=== PATIENT | male | born 1985 | race Caucasian/White ===

== ENCOUNTER 2020-06-22 08:32 | Emergency (ER) | payer OTHER, SELFPAY ==
--- NOTE | 2020-06-22 08:46 | ECG_ITS ---
Test Reason : SOB Blood Pressure : / mmHG Vent. Rate : 103 BPM Atrial Rate : 103 BPM P-R Int : 130 ms QRS Dur : 082 ms QT Int : 364 ms P-R-T Axes : 026 033 029 degrees QTc Int : 476 ms Sinus tachycardia Otherwise normal ECG No previous ECGs available Referred By: Maggie Vizcarra Electronically Signed By:HUI CRAIN MD
--- NOTE | 2020-06-22 08:50 | ED_ITS ---
HPI - Medical Clearance General Chief complaint: ETOH/Substance Use Stated complaint: withdrawal alcohol Time Seen by Provider: 06/22/20 08:45 Source: patient Mode of arrival: ambulatory Limitations: no limitations History of Present Illness MD complaint: medical clearance requested (for ETOH has bed at facility here for labs, meds, rapid COVID) Onset (ago): day(s) (drinking heavily x 1 year ) Reason for Medical Clearance: other (ETOH withdrawal) Place: home Alleged Intoxication: No Compliant with Home Medications: Yes Traumatic Symptoms: denies traumatic injury Associated Symptoms: diaphoresis and nausea/vomiting Treatments Prior to Arrival: none Related Information Allergies Allergy/AdvReac Type Severity Reaction Status Date / Time No Known Allergies Allergy Verified 06/22/20 08:45 Review of Systems Review of Systems: Constitutional : No Fever, No Chills, sweats ENT/Mouth : No Ear Pain, No Nasal Congestion, No sore throat Eyes: No Eye Pain, No Swelling, No Redness Cardiovascular : No Chest Pain, No SOB Respiratory : No Cough, No Sputum, No Dyspnea Gastrointestinal : pos Nausea, pos Vomiting, No Diarrhea, No Hematochezia, No Melena Genitourinary : No Dysuria, No Urinary Frequency, No Hematuria Musculoskeletal : No Myalgias Skin : No Skin Lesions, No rash Neuro : No Weakness, No Numbness, No Paresthesias, No Dizziness, No Headache Psych : positive Anxiety, no Depression,no SI/HI Heme/Lymph: No Lymphadenopathy Endocrine : No Polyuria, No Polydipsia All other systems reviewed and are negative [facility] Past Medical History Medical History Depression Diverticulitis GERD (gastroesophageal reflux disease) Social History Social History (Updated 06/22/20 @ 08:52 by Maggie Vizcarra DO) Alcohol intake: current Alcohol intake frequency: 3 or more drinks per day Alcohol type: hard liquor Smoking Status: Current every day smoker Tobacco Type: E-Cigarette Smoked in Last 30 Days: Yes Use of substances other than those prescribed or required for medical reasons: No Advance Directives: No Advance Directives Information Provided: No Physical Exam Vital Signs: Vital Signs: Last Vital Signs Temp 98.0 F 06/22/20 08:56 Pulse 74 06/22/20 11:45 Resp 18 06/22/20 08:56 BP 134/87 06/22/20 11:45 Pulse Ox 99 06/22/20 08:56 Body Mass Index 46.2 Appearance: Alert. Oriented X3. Anxious, mild acute distress, diaphoretic Eyes: Pupils equal, round and reactive to light. ENT: Pharynx normal. Neck: Normal inspection. Neck supple. CVS: Normal heart rate and rhythm. Pulses normal. Respiratory: No respiratory distress. Breath sounds normal. Abdomen: Soft and nontender. Skin: Skin warm and diaphoretic. Normal skin color. Normal skin turgor. Extremities: No lower extremity edema. No calf ttp Neuro: Oriented X 3. No motor deficit. No sensory deficit. Fine tremor bilateral UE Course Course Course Narrative: feels much better, stable for DC MDM - Medical Clearance MDM Narrative Medical decision making narrative: 34 yo male with GERD and alcoholism last drink 18 hours ago - has bed at [facility] needs medical clearance including rapid COVID at this time will need labs, IV ativan 2mg, hydration, EKG, covid test, intake phone call per [facility] is 10am. Lab Data Result diagrams: 06/22/20 09:10 06/22/20 09:09 Labs: Lab Results 06/22/20 06/22/20 06/22/20 Range/Units 09:09 09:09 09:09 WBC (4.8-10.8) X10*3/uL RBC (4.60-5.80) X10*6/uL Hgb (14.0-18.0) g/dl Hct (42-52) % MCV (80-98) fL MCH (27.0-33.0) pg MCHC (31.0-36.0) g/dl RDW (11.0-16.0) % Plt Count (160-400) X10*3/uL MPV (9.4-12.4) fL Immature Gran % (Auto) (0.0-0.4) % Neut % (Auto) (45-73) % Lymph % (Auto) (20-40) % [place] % (Auto) (2-11) % Eos % (Auto) (0-4) % Baso % (Auto) (0-2) % Lymph # (Auto) (1.2-4.9) X10*3/uL [place] # (Auto) (0.1-1.2) X10*3/uL Eos # (Auto) (0.0-0.4) X10*3/uL Baso # (Auto) (0.0-0.2) X10*3/uL Abs Immat Gran (auto) (0.00-0.03) X10*3/uL Absolute Neuts (auto) (2.0-8.3) X10*3/uL Absolute Nucleated RBC (0.0-0.012) X10*3/uL Nucleated RBC % (auto) (0.0-0.2) /100WBC Hold Blue Top SEE NOTE Sodium 139 (135-145) mmol/L Potassium 4.1 (3.3-5.1) mmol/l Chloride 103 (96-108) mmol/L Carbon Dioxide 27 (22-29) mmol/L Anion Gap 13 (12-20) BUN 12 (9-16) mg/dL Creatinine 0.86 (0.5-1.4) mg/dL Estim Creat Clear Calc 199.9 Estimated GFR > 60 Random Glucose 103 (60-115) mg/dL Calcium 8.0 L (8.4-10.2) mg/dL Magnesium 1.6 (1.6-2.6) mg/dL Total Bilirubin 0.4 (0.0-1.0) mg/dL Direct Bilirubin 0.2 (0.0-0.5) mg/dL AST 44 H (5-37) U/L ALT 56 H (0-40) U/L Alkaline Phosphatase 104 (39-117) U/L Total Protein 7.2 (6.5-8.0) g/dL Albumin 4.1 (3.5-5.0) g/dL Lipase (8-78) U/L Ethyl Alcohol < 10 mg/dL Coronavirus (PCR) (Negative) 06/22/20 06/22/20 06/22/20 Range/Units 09:09 09:10 10:36 WBC 8.7 (4.8-10.8) X10*3/uL RBC 4.61 (4.60-5.80) X10*6/uL Hgb 12.5 L (14.0-18.0) g/dl Hct 39.8 L (42-52) % MCV 86.3 (80-98) fL MCH 27.1 (27.0-33.0) pg MCHC 31.4 (31.0-36.0) g/dl RDW 14.9 (11.0-16.0) % Plt Count 209 (160-400) X10*3/uL MPV 8.6 L (9.4-12.4) fL Immature Gran % (Auto) 0.7 H (0.0-0.4) % Neut % (Auto) 72.2 (45-73) % Lymph % (Auto) 18.9 L (20-40) % [place] % (Auto) 6.5 (2-11) % Eos % (Auto) 1.1 (0-4) % Baso % (Auto) 0.6 (0-2) % Lymph # (Auto) 1.7 (1.2-4.9) X10*3/uL [place] # (Auto) 0.6 (0.1-1.2) X10*3/uL Eos # (Auto) 0.1 (0.0-0.4) X10*3/uL Baso # (Auto) 0.1 (0.0-0.2) X10*3/uL Abs Immat Gran (auto) 0.06 H (0.00-0.03) X10*3/uL Absolute Neuts (auto) 6.3 (2.0-8.3) X10*3/uL Absolute Nucleated RBC 0.000 (0.0-0.012) X10*3/uL Nucleated RBC % (auto) 0.0 (0.0-0.2) /100WBC Hold Blue Top Sodium (135-145) mmol/L Potassium (3.3-5.1) mmol/l Chloride (96-108) mmol/L Carbon Dioxide (22-29) mmol/L Anion Gap (12-20) BUN (9-16) mg/dL Creatinine (0.5-1.4) mg/dL Estim Creat Clear Calc Estimated GFR Random Glucose (60-115) mg/dL Calcium (8.4-10.2) mg/dL Magnesium (1.6-2.6) mg/dL Total Bilirubin (0.0-1.0) mg/dL Direct Bilirubin (0.0-0.5) mg/dL AST (5-37) U/L ALT (0-40) U/L Alkaline Phosphatase (39-117) U/L Total Protein (6.5-8.0) g/dL Albumin (3.5-5.0) g/dL Lipase 14 (8-78) U/L Ethyl Alcohol mg/dL Coronavirus (PCR) NEGATIVE (Negative) ECG Data Attestation: I personally reviewed and interpreted this ECG as follows: ECG interpretation date: 06/22/20 ECG interpretation time: 08:56 Interpretation: Rate: 103 Rhythm: sinus tachycardia [place]: normal Normal P waves. Normal LYLY. Normal QRS complex. ST T wave : normal qTC: normal prior studies: no acute ischemia The study has been interpreted contemporaneously by me. . Critical Care Time Critical Care Time Critical Care Time: Yes Total Critical Care Time: 60 Attestation: IV ativan x 2, IVF, labs, EKG I attest to this time spent taking care of the patient Discharge Plan Discharge Clinical Impression: Alcohol withdrawal syndrome Qualifiers: Complication of substance-induced condition: uncomplicated Qualified Code(s): F10.230 - Alcohol dependence with withdrawal, uncomplicated Patient Disposition: Home, Self-Care Instructions: Abuse of Alcohol (ED), Medical Clearance for Substance Abuse Treatment (ED) Additional Instructions: return to ED for any worsening symptoms or concerns PLEASE GO TO DETOX Interventions: ED Discharge Assessment Last Done: 06/22/20 13:37 Discharge Date/Time: 06/22/20 13:38
[2020-06-22 08:56] VITALS: BP 156/103; PULSE 74; RESP 18; TEMP 36.7; O2SAT 99; BMI 46.2
[2020-06-22 09:15] LABS: MANUAL DIFF FLAG NO
[2020-06-22 09:16] LABS: Basophils Absolute Auto 0.1 X10*3/uL (0.0-0.2); Basophils Percent Auto 0.6 % (0-2); Eosinophils Absolute Auto 0.1 X10*3/uL (0.0-0.4); Eosinophils Percent Auto 1.1 % (0-4); Hematocrit 39.8 % (42-52); Hemoglobin 12.5 g/dl (14.0-18.0); Imm Gran Abs Auto 0.06 X10*3/uL (0.00-0.03); Imm Gran Pct Auto 0.7 % (0.0-0.4); Lymphocytes Absolute Auto 1.7 X10*3/uL (1.2-4.9); Lymphocytes Percent Auto 18.9 % (20-40); Mean Corpuscular HGB Conc 31.4 g/dl (31.0-36.0); Mean Corpuscular Hemoglobin 27.1 pg (27.0-33.0); Mean Corpuscular Volume 86.3 fL (80-98); Mean Platelet Volume 8.6 fL (9.4-12.4); Monocytes Absolute Auto 0.6 X10*3/uL (0.1-1.2); Monocytes Percent Auto 6.5 % (2-11); Neutrophils Absolute Auto 6.3 X10*3/uL (2.0-8.3); Neutrophils Percent Auto 72.2 % (45-73); Platelet Count 209 X10*3/uL (160-400); Red Blood Count 4.61 X10*6/uL (4.60-5.80); Red Cell Distribution Width 14.9 % (11.0-16.0); White Blood Count 8.7 X10*3/uL (4.8-10.8)
[2020-06-22] MEDS: Magnesium Sulfate/H2O 2 GM/50 ML PIGGYBACK IV (09:16)
[2020-06-22] MEDS: 0.9 % Sodium Chloride 1,000 ML 999 ML IVCONT (09:16)
--- NOTE | 2020-06-22 09:16 | MHC.CARE ---
Addiction Consult Service note: Patient is a 34 year old Haitian speaking male who presented to [facility] for medical clearance so that patient can go to detox for alcohol use. 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 Patient reports [facility] beds available and that he will call them at 10:00 for an intake. Encouraged patient to consider how he plans to support his recovery after treatment. Patient acknowledged. This junior copywriter available as needed to assist with referral process.
[2020-06-22] MEDS: LORazepam 2 MG/ML VIAL IVPUSH ×2 (09:18→11:40)
[2020-06-22] MEDS: ondansetron HCL 4 MG/2 ML VIAL IVPUSH (09:18)
[2020-06-22 09:39] LABS: Alanine Aminotransferase 56 U/L (0-40); Albumin Level 4.1 g/dL (3.5-5.0); Alkaline Phosphatase 104 U/L (39-117); Anion Gap 13 (12-20); Aspartate Amino Transferase 44 U/L (5-37); Bilirubin Direct 0.2 mg/dL (0.0-0.5); Bilirubin Total 0.4 mg/dL (0.0-1.0); Blood Urea Nitrogen 12 mg/dL (9-16); Carbon Dioxide 27 mmol/L (22-29); Chloride 103 mmol/L (96-108); Creatinine Clr Calc Pharmacy 199.9; Estimated Glomerular Filt Rate > 60; Glucose Random 103 mg/dL (60-115); Magnesium 1.6 mg/dL (1.6-2.6); Potassium 4.1 mmol/l (3.3-5.1); Sodium 139 mmol/L (135-145); Total Protein 7.2 g/dL (6.5-8.0)
[2020-06-22 09:40] LABS: Lipase 14 U/L (8-78)
[2020-06-22 09:50] LABS: Ethanol < 10 mg/dL
[2020-06-22 09:59] VITALS: PULSE 82
--- NOTE | 2020-06-22 10:17 | PC.NURSE ---
pt continues to feel nauseous, provider aware. medicated per emar.
[2020-06-22] MEDS: Metoclopramide HCl 10 MG/2 ML VIAL IVPUSH (10:20)
[2020-06-22] MEDS: diphenhydrAMINE HCL 50 MG/ML VIAL 25 MG IVPUSH (10:20)
[2020-06-22] MEDS: chlordiazePOXIDE HCl 25 MG CAPSULE PO (11:40)
--- NOTE | 2020-06-22 11:44 | PC.NURSE ---
pt medicated further per emar, sts no longer feeling nauseous. tolerating po w/o issue. wctm.
[2020-06-22 11:45] VITALS: BP 134/87; PULSE 74
[2020-06-22 12:03] LABS: SARS COV2 PCR INHOUSE NEGATIVE (Negative)
== END 2020-06-22 13:38 | disposition home or self-care (01) ==
PROVIDERS: Emergency Provider Emergency Medicine; PCP Internal Medicine
DX: F10.230 Alcohol dependence with withdrawal, uncomplicated (principal); F17.200 Nicotine dependence, unspecified, uncomplicated; Z71.6 Tobacco abuse counseling; Z79.899 Other long term (current) drug therapy; Z20.828 Contact with and (suspected) exposure to other viral communicable diseases
CPT/HCPCS: 36415; 80048; 80076; 80320; 83690; 83735; 85025; 93005; 96365; 96375; 96376; 99285; 99291; J1200; J2060; J2405; J2765; J3475; U0003

== ENCOUNTER 2021-07-23 15:07 | Inpatient (IN) | payer OTHER, SELFPAY ==
[2021-07-23] VITALS (9 sets, daily range): BP systolic 115–129; BP diastolic 47–70; PULSE 106–126; RESP 18–30; TEMP 37.3–37.5; O2SAT 84–100; BMI 48.7
--- NOTE | ~2021-07-23 | CT_ITS ---
EXAMINATION: CT ANGIOGRAM OF THE CHEST WITH AND WITHOUT CONTRAST (CT PULMONARY ANGIOGRAM FOR PE) CLINICAL INFORMATION: Reason for Exam fall, right facial droop, chest pain, hypoxia rule out PE COMPARISON: None TECHNIQUE: Prior to contrast administration, noncontrast localization images were obtained. Subsequently, multidetector volumetric imaging was performed from the thoracic inlet to below the diaphragms following the administration of 100 mL Omnipaque 350 intravenous contrast. No contrast reaction reported Sagittal, coronal, and MIP oblique sagittal reformatted images were obtained on the CT workstation, uploaded to PACS, and reviewed. This CT examination was performed using dose optimization techniques as appropriate, variously including the following: *Automated exposure control *Adjustment of mA and/or kV according to patient size (this includes techniques or standardized protocols for targeted exams where dose is matched to indication/reason for exam; i.e. extremities or head) *Use of iterative reconstruction technique Total exam dose-length product 780 mGy-cm FINDINGS: QUALITY OF STUDY/CONTRAST BOLUS: The bolus is not optimal. Significant artifact is present from low-dose technique and the patient's large size. PULMONARY ARTERIES: No central or large segmental pulmonary emboli. THORACIC AORTA: No aneurysm or dissection. LUNG: Diffuse patchy densities are seen throughout the lungs involving all lobes, upper lobes greater than lower lobes. PLEURA: No pleural effusion or pneumothorax. MEDIASTINUM: Normal heart size. No pericardial effusion. No hilar or mediastinal lymphadenopathy. No evidence of septal bowing or right heart strain. CHEST WALL/AXILLA: No axillary or internal mammary lymphadenopathy. OSSEOUS STRUCTURES: No acute or suspicious osseous abnormality. UPPER ABDOMEN: The liver is enlarged with decreased attenuation suggesting hepatic steatosis. There is splenomegaly with the spleen measuring at least 15.3 cm in greatest dimension. No reflux of contrast into the hepatic veins to suggest elevated right heart pressures. CT/CT angio chest PE protocol IMPRESSION: 1. No pulmonary emboli are detected. 2. Diffuse extensive multifocal infiltrates as described above. 3. Enlarged fatty liver with splenomegaly VTE: negative
--- NOTE | ~2021-07-23 | CT_ITS ---
CT head/brain wo con CLINICAL INFORMATION: Fall COMPARISON: No prior CT scan available for comparison. TECHNIQUE: Department standard protocol. This CT examination was performed using dose optimization techniques as appropriate, variously including the following: *Automated exposure control *Adjustment of mA and/or kV according to patient size (this includes techniques or standardized protocols for targeted exams where dose is matched to indication/reason for exam; i.e. extremities or head) *Use of iterative reconstruction technique DLP: 880 mGy-cm FINDINGS: CEREBRAL HEMISPHERES: There is no evidence of intra-axial or extra-axial mass, hemorrhage or acute infarct. BRAIN PARENCHYMA: Normal vera-white matter differentiation. SUBDURAL SPACE: No bleed. BASAL GANGLIA AND PINEAL GLAND: Unremarkable VENTRICLES: Symmetric and normal in size. CEREBELLUM AND BRAINSTEM: No space-occupying mass, hemorrhage or acute infarct. CEREBELLOPONTINE ANGLES: No lesion found. ORBITS: No intraorbital mass. VESSELS: Unremarkable SKULL BASE: Unremarkable INCLUDED SINUSES AT SKULL BASE: Clear SKULL AND SKIN: No fracture or bone lesion found. CT/CT head for stroke IMPRESSION: Normal noncontrast head CT. No intracranial bleed. Normal CT scan does not rule out the possibility of hyperacute infarct in the first 12 hours. If patient symptoms persist may consider correlation with MRI, which is more sensitive for early acute infarct. This critical result was discussed with Kev Garcia MD by telephone at 07/23/2021 5: 20 PM and it was ascertained that the content and urgency of the report was understood at the time of direct communication.
--- NOTE | ~2021-07-23 | US_ITS ---
EXAMINATION: US VENOUS ULTRASOUND WITH DOPPLER LOWER EXTREMITY, LEFT CLINICAL INFORMATION: Left lower extremity swelling COMPARISON: None TECHNIQUE: Ultrasound of the deep veins is performed from the hip to the calf with compression sonography and color and pulse Doppler assessment. Spectral analysis with color-flow imaging is performed. FINDINGS: There is normal venous compression and respiratory variation and augmented flow. The visualized common femoral vein, superficial femoral vein, profunda femoral vein, popliteal vein, and the trifurcation region shows no evidence of deep venous thrombosis. There is no significant popliteal fossa cyst. If the patient's symptoms persist, followup ultrasound in 5 days 7 days might be of value to exclude proximal propagation from a non-visualized calf vein. US/US venous duplex LE LT IMPRESSION: No DVT demonstrated in the left lower extremity.
--- NOTE | 2021-07-23 16:12 | ECG_ITS ---
Test Reason : DYSPNEA Blood Pressure : / mmHG Vent. Rate : 108 BPM Atrial Rate : 108 BPM P-R Int : 140 ms QRS Dur : 084 ms QT Int : 346 ms P-R-T Axes : 018 035 035 degrees QTc Int : 463 ms Sinus tachycardia Otherwise normal ECG When compared with ECG of 22-JUN-2020 08:53, No significant change was found Referred By: Kev Garcia Electronically Signed By:Clark Lizarraga
--- NOTE | 2021-07-23 16:29 | ED_ITS ---
HPI - SOB/Dyspnea General Chief Complaint: Dyspnea Stated Complaint: SOB Time Seen by Provider: 07/23/21 15:56 Source: patient Mode of arrival: EMS Limitations: no limitations History of Present Illness HPI Narrative: 35-year-old male who presents emergency department for evaluation of right facial droop, right facial numbness, fall, hypoxia, chest pain. 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 this morning. He states that at around 2:30 p.m., his heard a being and suspected that the patient fell out of bed. When his got to the room, the patient was sitting on the side of the bed any appeared to be confused. The patient states that was having numbness on the right side of his face and he was having difficulty making a O with his lips. He states that he was having a burning sensation in his chest. he states that the burning sensation is similar to his GERD. The chest pain is constant, the pain is 5/10 at its worst. He also states this morning he has developed a cough which is productive of thick phlegm. He feels short of breath. The patient states he is also having trouble walking but he denies weakness in his extremities. The patient states that he was well throughout her shift last night and felt well this morning when he went to bed at 10:00 a.m.. The forms analysis manager note is not available to me however patient states that the paramedics were concerned that he was hypoxic and placed on 100%. at the time my evaluation, patient was able to give a complete history however he had significant nausea and vomited several times in front of me, the emesis was yellow and contain food, there is no blood in the emesis. The emesis measured approximately 700 cc in the emesis bag. Related Data Allergies Allergy/AdvReac Type Severity Reaction Status Date / Time No Known Allergies Allergy Verified 06/22/20 08:45 Review of Systems Review of Systems: Yes all other systems are reviewed and are negative [facility] Past Medical History [facility] Narrative: Past medical history: GERD, depression, alcohol use disorder - the patient states he has been sober for 1 year, diverticulitis. Past surgical history: None. 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 He smokes 5 cigarettes per day. He states that he is not drink alcohol in over 1 year. He denies drug use. Medical History Depression Diverticulitis GERD (gastroesophageal reflux disease) Social History Social History Alcohol intake: current Alcohol intake frequency: 3 or more drinks per day Alcohol type: hard liquor Advance Directives: No Advance Directives Information Provided: Yes Physical Exam Vital Signs: Vital Signs: Last Vital Signs Temp 99.1 F 07/23/21 15:38 Pulse 126 H 07/23/21 19:23 Resp 18 07/23/21 19:23 BP 129/66 07/23/21 19:23 Pulse Ox 95 07/23/21 19:23 BMI result Body Mass Index 48.7 Const: Other: Awake, alert, male patient, actively vomiting when I initially evaluated him. He is pleasant, cooperative, able answer all questions appropriately, does not appear to be in distress, O2 saturation on room air was 83%, on 5 L with 88% on non-rebreather at 15 L was 98%. Patient is overweight with a BMI of 48.8 HENMT: Head: Yes normal to inspection, Yes normocephalic and Yes atraumatic Ears: external ears normal General nose exam: Normal external nose present Face and sinus: No sinuses nontender and No face symmetric ( Slight right facial droop) Mouth: Normal oral and palatal mucosa present Throat: Yes posterior oropharynx normal Eyes: General: appearance normal, both eyes and all related structures Neck: Neck: Yes normal visual inspection, Yes no lymphadenopathy, Yes trachea midline and Yes supple Chest: Chest palpation & inspection: normal inspection of the chest and normal palpation of entire chest wall Resp: Effort & Inspection: normal respiratory effort and able to speak in complete sentences Auscultation: clear to auscultation bilaterally Cardio: Rate: regular rate Rhythm: regular rhythm Heart sounds: S1 normal heart sound present, S2 normal heart sound present and no murmurs GI: Inspection: Yes normal to inspection Palpation (GI): Soft to palpation, Tenderness to palpation present (GI) in the epigastrum ( moderate) and no guarding Auscultation: normal bowel sounds : General: Yes no CVA tenderness Back/Spine/Pelvis: Back: no CVA tenderness Skin: General skin exam: no rashes or lesions noted Neuro: Other: cranial nerves 2-12: The patient does have a very slight right facial droop and is not able to raise the corner of his right lips, he is not able to hold air in his cheeks secondary to not being able to hold his lips together. The patient has decreased light touch to the right side of his face compared to the left side otherwise his cranial nerves are intact. Cognition (Neuro): normal cognition Motor exam (neuro): 5/5 motor strength present throughout Extrem: General: Yes normal to inspection Psych: Appearance: grossly normal Speech and movement: Normal speech and movement present Affect: normal affect Attitude: cooperative Thought process: Normal thought process present NIH Stroke Scale Internal: Initial- Upon Arrival Level of Consciousness: Alert Level of Consciousness Questions: Answers both questions correctly Level of Consciousness Commands: Performs both tasks correctly Best Gaze: Normal Visual: No visual loss Facial Palsy: Minor paralyis Motor Arm (Right): No drift Motor Arm (Left): No drift Motor Leg (Right): No drift Motor Leg (Left): No drift Limb Ataxia: Absent Sensory: Normal Best Language: No aphasia Dysarthia: Normal Extinction and Inattention: No abnormality Score: 1 Course Course Course Narrative: 35-year-old male who presents emergency department for evaluation of a fall this afternoon at 2:30 p.m. with a last well-known time at 10:00 a.m.. The patient also complained difficulty forming an O with his left, right-sided facial numbness, nausea, vomiting, chest pain. Patient was found to be hypoxic by the paramedics and placed on a 100% non-rebreather mask at 15 liters/minute. Vital signs revealed tachycardia with a pulse of 106, tachypnea with a respiratory rate of 33, O2 saturation on room air was 83% and was 100% on non-rebreather mask. Neurologic exam did reveal slight right sided facial droop with decreased light touch sensation on the right side of his face compared to the left. He did have midepigastric tenderness on his abdominal exam otherwise exam was unremarkable. Differential includes but is not limited to stroke, closed head injury with bleed, pulmonary embolism, myocardial infarction, aortic dissection. Given that his last well-known time was 10:00 a.m. the patient was outside of the thrombolytics therapeutic window by the time I evaluated him also given the diagnostic uncertainty of this patient's presentation especially his fall, we will need more time to evaluate him for possible stroke versus other conditions and which thrombolytics would be contraindicated. Also, his NIH stroke scale was only 1.I ordered a CBC, CMP, troponin, PT/ INR, PTT, D-dimer, 12 EKG, CT pulmonary angiogram rule out PE, CT scan of the head stroke protocol. Patient was treated with normal saline IV x1 L, Zofran 4 mg IV. 1803: Laboratory evaluation: WBC was elevated 21,000, INR was elevated 1.2. BUN is elevated at 20, glucose elevated 161, AST and ALT are elevated 82 and 88, D-dimer was elevated at 1068, high sensitivity troponin I was elevated 163.7, COVID-[address] was [address] The patient's CT scan of the brain revealed no acute process. CT scan pulmonary angiogram PE protocol revealed no PE, but the radiologist did describe diffuse patchy densities seen throughout the lungs involving all lobes, upper lobes greater than lower lobes and incidental enlarged fatty liver with splenomegaly. given this finding, I did order blood cultures x2, lactic acid, patient will be treated with ceftriaxone 1 g IV and azithromycin 500 mg IV. The patient does meet SIRS criteria, he is not hypotensive but does need severe sepsis secondary to his severe hypoxia. Patient's COVID-19 test is negative however I am concerned that he still may have a COVID pneumonia. I will discuss further treatment with the covering heavy mobile equipment repairer. 1901: I did discuss the patient's presentation with the heavy mobile equipment repairer, Dr. Rowe. his differential included pulmonary edema, alveolar hemorrhage, reaction to drug use such as cocaine, COVID-19, atypical pneumonia, viral pneumonia. He recommended that we give the patient Solu-Medrol 30 mg IV and then 30 mg IV q.12, high-flow oxygen and CPAP at night the filter since the patient were CPAP . Patient's lactic acid was only 1.8. ProBNP was only 23 so I do not think that as pulmonary edema. I will discuss admission with the covering hospitalist.. 1955: The patient's repeat troponin did go up by more than 50%. I did discuss this with the pathology laboratory director, Dr. Lizarraga. thecardiologist felt that this represented a type 2 injury (troponin leak) secondary to hypoxia. He recommended against giving the patient heparin at this time and recommended that we treat his hypoxia. I did discuss the patient's presentation with the covering hospitalist, Dr. Cole. He brought up the possibility of an aspiration pneumonia, the patient was vomiting or got here in the emergency department but did not vomited home. I did add Flagyl 500 mg IV to his a ntibiotic regimen. Patient will be admitted to the [facility]. I will check an ABG on the patient. MDM - SOB/Dyspnea Lab Data Result diagrams: 07/23/21 16:42 07/23/21 16:42 Labs: Lab Results 07/23/21 07/23/21 07/23/21 Range/Units 16:42 16:42 16:42 WBC 21.0 H (4.8-10.8) X10*3/uL RBC 4.76 (4.60-5.80) X10*6/uL Hgb 12.1 L (14.0-18.0) g/dl Hct 39.5 L (42.0-52.0) % MCV 83.0 (80.0-98.0) fL MCH 25.4 L (27.0-33.0) pg MCHC 30.6 L (31.0-36.0) g/dl RDW 15.4 (11.0-16.0) % Plt Count 306 (160-400) X10*3/uL MPV 8.6 L (9.4-12.4) fL Immature Gran % (Auto) 1.2 H (0.0-0.4) % Neut % (Auto) 87.1 H (45-73) % Lymph % (Auto) 6.0 L (20-40) % Curry % (Auto) 5.4 (2-11) % Eos % (Auto) 0.1 (0-4) % Baso % (Auto) 0.2 (0-2) % Lymph # (Auto) 1.3 (1.2-4.9) X10*3/uL Curry # (Auto) 1.1 (0.1-1.2) X10*3/uL Eos # (Auto) 0.0 (0.0-0.4) X10*3/uL Baso # (Auto) 0.1 (0.0-0.2) X10*3/uL Abs Immat Gran (auto) 0.26 H (0.00-0.03) X10*3/uL Absolute Neuts (auto) 18.2 H (2.0-8.3) x10*3/uL Absolute Nucleated RBC 0.000 (0.0-0.012) X10*3/uL Nucleated RBC % (auto) 0.0 (0.0-0.2) /100WBC PT 13.5 H (9.9-13.0) SEC INR 1.2 H (0.9-1.1) APTT 29.0 (24.1-38.0) SEC D-Dimer High Sensitivty 1068 NG/ML Sodium 138 (135-145) mmol/L Potassium 4.8 (3.3-5.1) mmol/L Chloride 104 (96-108) mmol/L Carbon Dioxide 24 (22-29) mmol/L Anion Gap 15 (12-20) BUN 20 H (9-16) mg/dL Creatinine 1.24 (0.5-1.4) mg/dL Estim Creat Clear Calc 141.7 Estimated GFR > 60 POC Glucose (60-115) mg/dL Random Glucose 161 H D (60-115) mg/dL Lactic Acid (0.5-2.0) mmol/L Calcium 8.8 D (8.4-10.2) mg/dL Total Bilirubin 0.3 (0.0-1.0) mg/dL AST 82 H (5-37) U/L ALT 88 H (0-40) U/L Alkaline Phosphatase 99 (39-117) U/L Troponin I High Sens (<3.5-35.0) ng/L B-Natriuretic Peptide (<100) pg/mL Total Protein 7.4 (6.5-8.0) g/dL Albumin 4.2 (3.5-5.0) g/dL Lipase 11 (8-78) U/L COVID-19 (DOMINIQUE) (Negative) COVID-19 Clin Com Influenza Type A (PCR) (Negative) Influenza Type B (PCR) (Negative) RSV RNA Qual (PCR) (Negative) SARS-CoV-2 RNA (RT-PCR) (Negative) 07/23/21 07/23/21 07/23/21 Range/Units 16:42 16:43 18:32 WBC (4.8-10.8) X10*3/uL RBC (4.60-5.80) X10*6/uL Hgb (14.0-18.0) g/dl Hct (42.0-52.0) % MCV (80.0-98.0) fL MCH (27.0-33.0) pg MCHC (31.0-36.0) g/dl RDW (11.0-16.0) % Plt Count (160-400) X10*3/uL MPV (9.4-12.4) fL Immature Gran % (Auto) (0.0-0.4) % Neut % (Auto) (45-73) % Lymph % (Auto) (20-40) % Curry % (Auto) (2-11) % Eos % (Auto) (0-4) % Baso % (Auto) (0-2) % Lymph # (Auto) (1.2-4.9) X10*3/uL Curry # (Auto) (0.1-1.2) X10*3/uL Eos # (Auto) (0.0-0.4) X10*3/uL Baso # (Auto) (0.0-0.2) X10*3/uL Abs Immat Gran (auto) (0.00-0.03) X10*3/uL Absolute Neuts (auto) (2.0-8.3) x10*3/uL Absolute Nucleated RBC (0.0-0.012) X10*3/uL Nucleated RBC % (auto) (0.0-0.2) /100WBC PT (9.9-13.0) SEC INR (0.9-1.1) APTT (24.1-38.0) SEC D-Dimer High Sensitivty NG/ML Sodium (135-145) mmol/L Potassium (3.3-5.1) mmol/L Chloride (96-108) mmol/L Carbon Dioxide (22-29) mmol/L Anion Gap (12-20) BUN (9-16) mg/dL Creatinine (0.5-1.4) mg/dL Estim Creat Clear Calc Estimated GFR POC Glucose (60-115) mg/dL Random Glucose (60-115) mg/dL Lactic Acid (0.5-2.0) mmol/L Calcium (8.4-10.2) mg/dL Total Bilirubin (0.0-1.0) mg/dL AST (5-37) U/L ALT (0-40) U/L Alkaline Phosphatase (39-117) U/L Troponin I High Sens 163.7 H* 396.7 H* D (<3.5-35.0) ng/L B-Natriuretic Peptide 23 (<100) pg/mL Total Protein (6.5-8.0) g/dL Albumin (3.5-5.0) g/dL Lipase (8-78) U/L COVID-19 (DOMINIQUE) Negative (Negative) COVID-19 Clin Com See Note Influenza Type A (PCR) (Negative) Influenza Type B (PCR) (Negative) RSV RNA Qual (PCR) (Negative) SARS-CoV-2 RNA (RT-PCR) (Negative) 07/23/21 07/23/21 07/23/21 Range/Units 18:32 18:38 19:47 WBC (4.8-10.8) X10*3/uL RBC (4.60-5.80) X10*6/uL Hgb (14.0-18.0) g/dl Hct (42.0-52.0) % MCV (80.0-98.0) fL MCH (27.0-33.0) pg MCHC (31.0-36.0) g/dl RDW (11.0-16.0) % Plt Count (160-400) X10*3/uL MPV (9.4-12.4) fL Immature Gran % (Auto) (0.0-0.4) % Neut % (Auto) (45-73) % Lymph % (Auto) (20-40) % Curry % (Auto) (2-11) % Eos % (Auto) (0-4) % Baso % (Auto) (0-2) % Lymph # (Auto) (1.2-4.9) X10*3/uL Curry # (Auto) (0.1-1.2) X10*3/uL Eos # (Auto) (0.0-0.4) X10*3/uL Baso # (Auto) (0.0-0.2) X10*3/uL Abs Immat Gran (auto) (0.00-0.03) X10*3/uL Absolute Neuts (auto) (2.0-8.3) x10*3/uL Absolute Nucleated RBC (0.0-0.012) X10*3/uL Nucleated RBC % (auto) (0.0-0.2) /100WBC PT (9.9-13.0) SEC INR (0.9-1.1) APTT (24.1-38.0) SEC D-Dimer High Sensitivty NG/ML Sodium (135-145) mmol/L Potassium (3.3-5.1) mmol/L Chloride (96-108) mmol/L Carbon Dioxide (22-29) mmol/L Anion Gap (12-20) BUN (9-16) mg/dL Creatinine (0.5-1.4) mg/dL Estim Creat Clear Calc Estimated GFR POC Glucose 95 (60-115) mg/dL Random Glucose (60-115) mg/dL Lactic Acid 1.8 (0.5-2.0) mmol/L Calcium (8.4-10.2) mg/dL Total Bilirubin (0.0-1.0) mg/dL AST (5-37) U/L ALT (0-40) U/L Alkaline Phosphatase (39-117) U/L Troponin I High Sens (<3.5-35.0) ng/L B-Natriuretic Peptide (<100) pg/mL Total Protein (6.5-8.0) g/dL Albumin (3.5-5.0) g/dL Lipase (8-78) U/L COVID-19 (DOMINIQUE) (Negative) COVID-19 Clin Com Influenza Type A (PCR) NEGATIVE (Negative) Influenza Type B (PCR) NEGATIVE (Negative) RSV RNA Qual (PCR) NEGATIVE (Negative) SARS-CoV-2 RNA (RT-PCR) NEGATIVE (Negative) Critical Care Time Critical Care Time Critical Care Time: Yes Total Critical Care Time: 80 Attestation: Critical Care: The patient was critically ill with a high probability of imminent or life threatening deterioration. I spent greater than 30 minutes of discontinuous time evaluating the patient,delivering critical care at the bedside, discussing and evaluating pertinent data with consultants. Crit ical care time does not include time spent performing separately billable procedures or teaching. Total time spent performing critical care was 80 minutes.
[2021-07-23 16:48] LABS: MANUAL DIFF FLAG NO
[2021-07-23 16:49] LABS: Basophils Absolute Auto 0.1 X10*3/uL (0.0-0.2); Basophils Percent Auto 0.2 % (0-2); Eosinophils Percent Auto 0.1 % (0-4); Hematocrit 39.5 % (42.0-52.0); Hemoglobin 12.1 g/dl (14.0-18.0); Imm Gran Abs Auto 0.26 X10*3/uL (0.00-0.03); Imm Gran Pct Auto 1.2 % (0.0-0.4); Lymphocytes Absolute Auto 1.3 X10*3/uL (1.2-4.9); Mean Corpuscular HGB Conc 30.6 g/dl (31.0-36.0); Mean Corpuscular Hemoglobin 25.4 pg (27.0-33.0); Mean Platelet Volume 8.6 fL (9.4-12.4); Monocytes Absolute Auto 1.1 X10*3/uL (0.1-1.2); Monocytes Percent Auto 5.4 % (2-11); Neutrophils Absolute Auto 18.2 x10*3/uL (2.0-8.3); Neutrophils Percent Auto 87.1 % (45-73); Platelet Count 306 X10*3/uL (160-400); Red Blood Count 4.76 X10*6/uL (4.60-5.80); Red Cell Distribution Width 15.4 % (11.0-16.0)
[2021-07-23] MEDS: 0.9 % Sodium Chloride 1,000 ML 999 ML IV (16:50)
[2021-07-23 16:55] LABS: INTERNATIONAL NORM RATIO 1.2 (0.9-1.1); Prothrombin Time 13.5 SEC (9.9-13.0)
[2021-07-23] MEDS: ondansetron HCL 4 MG/2 ML VIAL IVPUSH (16:56)
[2021-07-23 16:57] LABS: D Dimer High Sensitivity 1068 NG/ML
[2021-07-23 17:04] LABS: Alanine Aminotransferase 88 U/L (0-40); Albumin Level 4.2 g/dL (3.5-5.0); Alkaline Phosphatase 99 U/L (39-117); Anion Gap 15 (12-20); Aspartate Amino Transferase 82 U/L (5-37); Bilirubin Total 0.3 mg/dL (0.0-1.0); Blood Urea Nitrogen 20 mg/dL (9-16); Calcium 8.8 mg/dL (8.4-10.2); Carbon Dioxide 24 mmol/L (22-29); Chloride 104 mmol/L (96-108); Creatinine Clr Calc Pharmacy 141.7; Estimated Glomerular Filt Rate > 60; Glucose Random 161 mg/dL (60-115); Lipase 11 U/L (8-78); Potassium 4.8 mmol/L (3.3-5.1); Sodium 138 mmol/L (135-145); Total Protein 7.4 g/dL (6.5-8.0)
[2021-07-23 17:05] LABS: COVID-19 Test Negative (Negative)
[2021-07-23 17:20] LABS: Troponin-I High Sensitivity 163.7 ng/L (<3.5-35.0)
[2021-07-23] MEDS: iohexoL 350 MG/ML 100 ML INFUS..BTL IV (17:28)
[2021-07-23 18:49] LABS: B Type Natriuretic Peptide 23 pg/mL (<100)
[2021-07-23 18:58] LABS: Lactic Acid 1.8 mmol/L (0.5-2.0)
[2021-07-23] MEDS: cefTRIAXone sodium 1 GM in 0.9 % Sodium Chloride 50 ML IV (19:01)
--- NOTE | 2021-07-23 19:07 | PM.CCN ---
Critical Care Event Note Summary Date of Service: 07/23/21 Code activated: No Narrative: Full pulmonary consult to follow in am. Chart reviewed. Case discussed with ER provider. Broad differential - infectious vs inflammatory vs pulmonary edema vs. diffuse alveolar hemorrhage vs. diffuse lung injury. Agree with CAP coverage, empiric Solu-Medrol 40 BID. Check echo/tox screen. Continue supplemental O2 to maintain O2 sat >90%. Critical Care Time (minutes): 0
[2021-07-23 19:16] LABS: Troponin-I High Sensitivity 396.7 ng/L (<3.5-35.0)
[2021-07-23 19:24] LABS: Influenza A PCR NEGATIVE (Negative); Influenza B PCR NEGATIVE (Negative); Resp Syncy Virus RNA Qual PCR NEGATIVE (Negative); SARS COV2 PCR INHOUSE NEGATIVE (Negative)
[2021-07-23 19:51] LABS: Glucose, Whole Blood 95 mg/dL (60-115)
[2021-07-23] MEDS: methylPREDNISolone Sod Succ 40 MG/ML VIAL 30 MG IVPUSH (20:06)
[2021-07-23 20:07] LABS: Amphetamine Screen Urine Not Detected (Not Detect); Barbiturates, Urine Not Detected (Not Detect); Benzodiazepines Screen Urine Not Detected (Not Detect); Cannabinoid Screen Urine Not Detected (Not Detect); Cocaine Screen Urine Not Detected (Not Detect); Fentanyl, urine POSITIVE (Not Detect); Opiate Screen Urine POSITIVE (Not Detect); Phencyclidine Screen Urine Not Detected (Not Detect)
[2021-07-23] MEDS: Azithromycin 500 MG in 0.9 % Sodium Chloride 250 ML 125 MG IV (20:19)
[2021-07-23 21:22] LABS: ABG Base Excess -1.7 mmol/L; ABG HCO3 23 mmol/L (22-26); ABG pCO2 40 mmHg (32-45); ABG pCO2 TC 40 mmHg (32-45); ABG pH 7.37 (7.35-7.45); ABG pH TC 7.36 (7.35-7.45); ABG pO2 89 mmHg (83-108); ABG pO2 TC 90 (83-108)
[2021-07-23 21:22] LABS: ABG Refer to POC result
--- NOTE | 2021-07-23 21:36 | PHA.MEDREC ---
MED REC COMPLETE,, NO ISSUES Pharmacy Consult ? Medication Reconciliation Pharmacy has completed the medication reconciliation.
--- NOTE | 2021-07-23 21:45 | P.HPHOSP_ITS ---
History of Present Illness Date of Service: 07/23/21 Chief Complaint: SOB 35-year-old male with a past medical history of diabetes, depression, obesity, JENNIFER on CPAP at home, GERD presented to the hospital today with a chief complaint of confusion. Patient reported that he came from the work and slept; later his heard the sound of states and went to see him- where he was noted to be sitting on the side of the bed appears mildly confused; At that time patient reported that he felt numb in his right side of the face, burning in his chest -similar to prior acid reflux but severe in intensity; mild lightheadedness; denied any palpitations. 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 Denies any Use of opiate abuse. Reports that he uses CPAP machine every night. Denies any urinary symptoms. Denies any fevers. He mentions that if he does not use a CPAP machine at night he usually becomes hypoxic. Followed by the called the EMS-when EMS arrived patient was noted to be saturating at 83%; placed on a non-rebreather and bottom to the ER for further evaluation. Review of all other systems is negative except mentioned above ER course: Per ER team patient on presentation noted to be tachycardic, tachypneic, on non-rebreather- saturating 100%; lungs are coarse; a patient also unable to off his lipids; otherwise exam was nonfocal; CT head showed no acute findings; Patient had CTA angio of the chest which showed no evidence of pulmonary embolism but noted patchy infiltrates mainly on the upper lobes; ER team discussed with the ICU doctor Jae-> for his acute hypoxic respiratory failure-; ICU team recommended to keep the patient on high-flow and admitted to the patient to the medical floors. Patient also noted to have EKG with sinus tachycardia and no ischemia otherwise; troponins elevated to 163-3 96; discussed with from Cardiology who mentioned that the elevated troponins likely in the setting of demand from hypoxia and no further intervention needed including heparin drip. Admitted to the hospital for further management [facility] Medical History Depression Diverticulitis GERD (gastroesophageal reflux disease) Pertinent family history: Reviewed Social History Alcohol intake: current Alcohol intake frequency: 3 or more drinks per day Alcohol type: hard liquor Advance Directives: No Advance Directives Information Provided: Yes Meds Allergies Allergy/AdvReac Type Severity Reaction Status Date / Time No Known Allergies Allergy Verified 06/22/20 08:45 Active Medications: Current Medications Acetaminophen (Acetaminophen 325 Mg Tablet) 650 mg PO Q6H PRN PRN Reason: Pain, Mild (Pain Scale 1-3) Albuterol/Ipratropium (Albuterol/Iprat 2.5/0.5mg 3 Ml Ampul.Neb) 3 ml INHALE RQ4H PRN PRN Reason: Shortness of Breath/Wheezing Bupropion HCl (Bupropion Hcl Xl 300 Mg Tab.Er.24h) 300 mg PO DAILY [facility] Dextrose (Dextrose 50 % 25 Gm/50 Ml Vial) 25 gm IVPUSH Q15M PRN; Protocol PRN Reason: per Hypoglycemia Standing Ord. Enoxaparin Sodium (Enoxaparin Sodium 40 Mg/0.4 Ml Syringe) 40 mg SUBCUT Q24H [facility] Glucose (Glucose Gel 15 Gm Gel..Gram.) 15 gm PO Q15M PRN; Protocol PRN Reason: per Hypoglycemia Standing Ord. Ceftriaxone Sodium 1 gm/ (Sodium Chloride) 50 mls @ 100 mls/hr IV Q24H [facility] Metronidazole (Flagyl) 500 mg in 100 mls @ 100 mls/hr IV Q8H [facility] Azithromycin 500 mg/ Sodium (Chloride) 250 mls @ 125 mls/hr IV Q24H [facility] Insulin Human Lispro (Insulin Lispro 100 Unit/Ml 3 Ml Vial) 0 unit SUBCUT QIDACHS [facility]; Protocol Melatonin (Melatonin 3 Mg Tablet) 6 mg PO BEDTIME PRN PRN Reason: Insomnia Methylprednisolone Sodium Succinate (Methylprednisolone Sod Succ 40 Mg/Ml Vial) 40 mg IVPUSH Q8H [facility] Morphine Sulfate (Morphine Sulfate 4 Mg/Ml Cartridge) 1 mg IVPUSH Q4H PRN; Protocol PRN Reason: Pain, SOB Omeprazole (Omeprazole 20 Mg Capsule.Dr) 20 mg PO DAILY [facility] Senna (Sennosides 8.6 Mg Tablet) 17.2 mg PO BEDTIME PRN PRN Reason: Constipation Sodium Chloride (0.9 % Sodium Chloride Flush 3 Ml Syringe) 3 ml IVFLUSH QSHIFT [facility] Home Medications Medication Instructions Recorded Confirmed Last Taken Type bupropion HCl 300 mg 24 hr tablet, 300 mg PO DAILY 07/23/21 07/23/21 Unknown History extended release metformin 750 mg tablet,extended 1,500 mg PO DAILY 07/23/21 07/23/21 Unknown History release 24 hr omeprazole 20 mg capsule,delayed 20 mg PO DAILY 07/23/21 07/23/21 Unknown History release Physical Exam Vital Signs and Narrative: Vital Signs: Last Vital Signs Temp 99.1 F 07/23/21 15:38 Pulse 126 H 07/23/21 19:23 Resp 18 07/23/21 19:23 BP 129/66 07/23/21 19:23 Pulse Ox 95 07/23/21 19:23 BMI result Body Mass Index 48.7 Gen: Appears be in no acute distress. on supplemental oxygen. Speaks in full sentences. Tachycardic. HEENT: NCAT, Moist mucosa. Pulmonary: coarse breath sounds, fair air entry CVS: Normal S1-S2 Abdomen: BS+, Soft, Nontender Extremities: Warm well perfused Neuro: Alert and awake. decreased sensation on the left leg compared to the right leg; stent equal bilaterally; patient has subtle facial droop on the right side; slightly decreased sensations on the right side of the face; no pronator drift; gait is normal. Speech is clear. Results Labs CBC and Chem 7: 07/23/21 16:42 07/23/21 16:42 Labs: Laboratory Results - last 24 hr 07/23/21 07/23/21 07/23/21 16:42 16:42 16:42 MCV 83.0 MCH 25.4 L MCHC 30.6 L RDW 15.4 Plt Count 306 MPV 8.6 L Immature Gran % (Auto) 1.2 H Neut % (Auto) 87.1 H Lymph % (Auto) 6.0 L [place] % (Auto) 5.4 Eos % (Auto) 0.1 Baso % (Auto) 0.2 Lymph # (Auto) 1.3 [place] # (Auto) 1.1 Eos # (Auto) 0.0 Baso # (Auto) 0.1 Abs Immat Gran (auto) 0.26 H Absolute Neuts (auto) 18.2 H Absolute Nucleated RBC 0.000 Nucleated RBC % (auto) 0.0 PT 13.5 H INR 1.2 H APTT 29.0 D-Dimer High Sensitivty 1068 O2 Saturation ABG pH at Pt Temp ABG pH (Temp Correct) ABG pCO2 at Pt Temp ABG pCO2 (Temp Corrct ABG pO2 at Pt Temp ABG pO2 (Temp Correct ABG HCO3 ABG Base Excess (Actual) Anion Gap 15 Estim Creat Clear Calc 141.7 Estimated GFR > 60 POC Glucose Random Glucose 161 H D Lactic Acid Calcium 8.8 D Total Bilirubin 0.3 AST 82 H ALT 88 H Alkaline Phosphatase 99 Troponin I High Sens B-Natriuretic Peptide Total Protein 7.4 Albumin 4.2 Lipase 11 Urine Opiates Screen Urine Fentanyl Screen Ur Barbiturates Screen Ur Phencyclidine Scrn Ur Amphetamines Screen U Benzodiazepines Scrn Urine Cocaine Screen U Marijuana (THC) Screen COVID-19 (DOMINIQUE) COVID-19 Clin Com Influenza Type A (PCR) Influenza Type B (PCR) RSV RNA Qual (PCR) SARS-CoV-2 RNA (RT-PCR) 07/23/21 07/23/21 07/23/21 16:42 16:43 18:32 MCV MCH MCHC RDW Plt Count MPV Immature Gran % (Auto) Neut % (Auto) Lymph % (Auto) [place] % (Auto) Eos % (Auto) Baso % (Auto) Lymph # (Auto) [place] # (Auto) Eos # (Auto) Baso # (Auto) Abs Immat Gran (auto) Absolute Neuts (auto) Absolute Nucleated RBC Nucleated RBC % (auto) PT INR APTT D-Dimer High Sensitivty O2 Saturation ABG pH at Pt Temp ABG pH (Temp Correct) ABG pCO2 at Pt Temp ABG pCO2 (Temp Corrct ABG pO2 at Pt Temp ABG pO2 (Temp Correct ABG HCO3 ABG Base Excess (Actual) Anion Gap Estim Creat Clear Calc Estimated GFR POC Glucose Random Glucose Lactic Acid Calcium Total Bilirubin AST ALT Alkaline Phosphatase Troponin I High Sens 163.7 H* 396.7 H* D B-Natriuretic Peptide 23 Total Protein Albumin Lipase Urine Opiates Screen Urine Fentanyl Screen Ur Barbiturates Screen Ur Phencyclidine Scrn Ur Amphetamines Screen U Benzodiazepines Scrn Urine Cocaine Screen U Marijuana (THC) Screen COVID-19 (DOMINIQUE) Negative COVID-19 Clin Com See Note Influenza Type A (PCR) Influenza Type B (PCR) RSV RNA Qual (PCR) SARS-CoV-2 RNA (RT-PCR) 07/23/21 07/23/21 07/23/21 18:32 18:38 19:40 MCV MCH MCHC RDW Plt Count MPV Immature Gran % (Auto) Neut % (Auto) Lymph % (Auto) [place] % (Auto) Eos % (Auto) Baso % (Auto) Lymph # (Auto) [place] # (Auto) Eos # (Auto) Baso # (Auto) Abs Immat Gran (auto) Absolute Neuts (auto) Absolute Nucleated RBC Nucleated RBC % (auto) PT INR APTT D-Dimer High Sensitivty O2 Saturation ABG pH at Pt Temp ABG pH (Temp Correct) ABG pCO2 at Pt Temp ABG pCO2 (Temp Corrct ABG pO2 at Pt Temp ABG pO2 (Temp Correct ABG HCO3 ABG Base Excess (Actual) Anion Gap Estim Creat Clear Calc Estimated GFR POC Glucose Random Glucose Lactic Acid 1.8 Calcium Total Bilirubin AST ALT Alkaline Phosphatase Troponin I High Sens B-Natriuretic Peptide Total Protein Albumin Lipase Urine Opiates Screen POSITIVE H Urine Fentanyl Screen POSITIVE H Ur Barbiturates Screen Not Detected Ur Phencyclidine Scrn Not Detected Ur Amphetamines Screen Not Detected U Benzodiazepines Scrn Not Detected Urine Cocaine Screen Not Detected U Marijuana (THC) Screen Not Detected COVID-19 (DOMINIQUE) COVID-19 Clin Com Influenza Type A (PCR) NEGATIVE Influenza Type B (PCR) NEGATIVE RSV RNA Qual (PCR) NEGATIVE SARS-CoV-2 RNA (RT-PCR) NEGATIVE 07/23/21 07/23/21 19:47 21:15 MCV MCH MCHC RDW Plt Count MPV Immature Gran % (Auto) Neut % (Auto) Lymph % (Auto) [place] % (Auto) Eos % (Auto) Baso % (Auto) Lymph # (Auto) [place] # (Auto) Eos # (Auto) Baso # (Auto) Abs Immat Gran (auto) Absolute Neuts (auto) Absolute Nucleated RBC Nucleated RBC % (auto) PT INR APTT D-Dimer High Sensitivty O2 Saturation 95.0 ABG pH at Pt Temp 7.37 ABG pH (Temp Correct) 7.36 ABG pCO2 at Pt Temp 40 ABG pCO2 (Temp Corrct 40 ABG pO2 at Pt Temp 89 ABG pO2 (Temp Correct 90 ABG HCO3 23 ABG Base Excess (Actual) -1.7 Anion Gap Estim Creat Clear Calc Estimated GFR POC Glucose 95 Random Glucose Lactic Acid Calcium Total Bilirubin AST ALT Alkaline Phosphatase Troponin I High Sens B-Natriuretic Peptide Total Protein Albumin Lipase Urine Opiates Screen Urine Fentanyl Screen Ur Barbiturates Screen Ur Phencyclidine Scrn Ur Amphetamines Screen U Benzodiazepines Scrn Urine Cocaine Screen U Marijuana (THC) Screen COVID-19 (DOMINIQUE) COVID-19 Clin Com Influenza Type A (PCR) Influenza Type B (PCR) RSV RNA Qual (PCR) SARS-CoV-2 RNA (RT-PCR) Imaging Radiologist's Impressions: Impressions Head CT 07/23/21 17:15 IMPRESSION: Normal noncontrast head CT. No intracranial bleed. Normal CT scan does not rule out the possibility of hyperacute infarct in the first 12 hours. If patient symptoms persist may consider correlation with MRI, which is more sensitive for early acute infarct. This critical result was discussed with Kev Garcia MD by telephone at 07/23/2021 5: 20 PM and it was ascertained that the content and urgency of the report was understood at the time of direct communication. Chest CTA 07/23/21 17:32 IMPRESSION: 1. No pulmonary emboli are detected. 2. Diffuse extensive multifocal infiltrates as described above. 3. Enlarged fatty liver with splenomegaly VTE: negative Venous Duplex 07/23/21 19:17 IMPRESSION: No DVT demonstrated in the left lower extremity. Assessment and Plan (1) Pneumonia: Qualifiers: Laterality: bilateral Lung location: unspecified part of lung Pneumonia type: due to unspecified organism Qualified Code(s): J18.9 - Pneumonia, unspecified organism Status: Acute (2) Hypoxia: Status: Acute (3) Syncope: Qualifiers: Encounter type: initial encounter Status: Acute (4) Elevated troponin: Status: Acute 35-year-old male with a past medical history of anxiety, depression, diabetes, GERD, JENNIFER on CPAP presented to the hospital with a chief complaint of confusion/ hypoxia. Noted to have following conditions: Acute hypoxic respiratory failure: Likely in the setting of pneumonia -anthony pected aspiration. COVID-19 test came back negative. Currently on high-flow oxygen -not in respiratory distress. Continue ceftriaxone, azithromycin, Flagyl. Pulmonology consult Id consult Brittany devlin will also keep the patient on Solu-Medrol 40 mg IV t.i.d. right facial droop/left leg numbness: CT head showed no acute findings. Will consult Neurology for further recommendations. speech and swallow eval. Elevated troponins: Likely demand. EKG nonischemic. Patient denies any chest pain. Cardiology aware. Echocardiogram. Monitor on telemetry. Confusion: Likely in the setting of opiate abuse. Mental status improving. ? Opiate abuse: Patient denies any opiate use. U tox positive for fentanyl and opiates. Addiction Medicine consult. Diabetes: Insulin sliding scale Depression: Continue home bupropion GERD: Continue home omeprazole DVT prophylaxis: Lovenox Code status: Full code Quality Stroke Does the patient have a stroke diagnosis?: No VTE Prior VTE?: No VTE Risk Level:: Medical - moderate - high VTE Device Contraindication: Treatment Not Indicated VTE Drug Contraindication: N/A - Med Ordered
--- NOTE | 2021-07-23 21:49 | PC.NURSE ---
pt alert oriented x4, sitting at edge of bed, takes high flow on and off due to comfort. pt states he was around a pt with cocaine yesterday morning.. provider made aware. pt denies using any street drugs.
[2021-07-23] MEDS: metroNIDAZOLE/NS 500 MG/100 ML PIGGYBACK 100 MG IV (22:27)
[2021-07-23] MEDS: Enoxaparin Sodium 40 MG/0.4 ML SYRINGE SUBCUT (22:39)
[2021-07-23 23:05] LABS: Glucose, Whole Blood 131 mg/dL (60-115)
[2021-07-24] VITALS (13 sets, daily range): BP systolic 97–124; BP diastolic 55–75; PULSE 100–116; RESP 15–27; TEMP 36.8–36.9; O2SAT 94–98; BMI 49.6
[2021-07-24] MEDS: Acetaminophen 325 MG TABLET 650 MG PO ×2 (01:38→17:24)
[2021-07-24] MEDS: Morphine Sulfate 4 MG/ML CARTRIDGE 1 MG IVPUSH ×2 (01:39→09:49)
[2021-07-24] MEDS: methylPREDNISolone Sod Succ 40 MG/ML VIAL IVPUSH ×3 (03:58→20:53)
[2021-07-24] MEDS: metroNIDAZOLE/NS 500 MG/100 ML PIGGYBACK 100 MG IV ×3 (06:11→22:59)
[2021-07-24] MEDS: Omeprazole 20 MG CAPSULE.DR PO (06:11)
[2021-07-24 06:36] LABS: Basophils Percent Auto 0.1 % (0-2); Hematocrit 36.5 % (42.0-52.0); Hemoglobin 11.3 g/dl (14.0-18.0); Imm Gran Abs Auto 0.13 X10*3/uL (0.00-0.03); Imm Gran Pct Auto 0.6 % (0.0-0.4); Lymphocytes Absolute Auto 0.9 X10*3/uL (1.2-4.9); Lymphocytes Percent Auto 3.9 % (20-40); MANUAL DIFF FLAG SCAN; Mean Corpuscular Hemoglobin 25.7 pg (27.0-33.0); Mean Platelet Volume 8.7 fL (9.4-12.4); Monocytes Absolute Auto 0.5 X10*3/uL (0.1-1.2); Monocytes Percent Auto 2.1 % (2-11); Neutrophils Percent Auto 93.3 % (45-73); Platelet Count 276 X10*3/uL (160-400); Red Cell Distribution Width 15.5 % (11.0-16.0); SCAN SMEAR FLAG 1; White Blood Count 23.6 X10*3/uL (4.8-10.8)
[2021-07-24 06:50] LABS: Anion Gap 14 (12-20); Blood Urea Nitrogen 17 mg/dL (9-16); Calcium 8.8 mg/dL (8.4-10.2); Carbon Dioxide 23 mmol/L (22-29); Chloride 106 mmol/L (96-108); Creatinine Clr Calc Pharmacy 197.4; Estimated Glomerular Filt Rate > 60; Glucose Random 146 mg/dL (60-115); Potassium 5.1 mmol/L (3.3-5.1); Sodium 138 mmol/L (135-145)
[2021-07-24 07:08] LABS: SLIDE REVIEW VERIFIED
[2021-07-24 07:33] LABS: Glucose, Whole Blood 131 mg/dL (60-115)
--- NOTE | 2021-07-24 07:43 | PC.NURSE ---
Daniel rec'd from Kenyatta WHITE. Pt resting on Hi flow, O2 98%, pt offers no complaints at this time. Will continue to monitor.
--- NOTE | 2021-07-24 09:09 | P.CONCA_ITS ---
History of Present Illness History of Present Illness Date of Service: 07/24/21 Requesting physician: Kev Garcia Chief complaint: Acute hypoxia Narrative: 35-year-old gentleman who is presenting for cough shortness of breath and hypoxia. He has pneumonia and has been started on antibiotics. This some concern for aspiration. Story is unclear and he does not remember himself also but there was some concern about syncope. It appears his found him short of breath and it was unclear whether he has passed out or not. In any case he was noted to have pneumonia and was started on antibiotics. He also had mildly abnormal troponin levels. He was hypoxic on admission he has been on high flow nasal cannula at this stage. [facility] Past Medical History Medical History Depression Diverticulitis GERD (gastroesophageal reflux disease) Social History Social History Alcohol intake: current Alcohol intake frequency: 3 or more drinks per day Alcohol type: hard liquor Advance Directives: No Advance Directives Information Provided: Yes service: No Current occupational status: employed Meds Allergies Allergy/AdvReac Type Severity Reaction Status Date / Time No Known Allergies Allergy Verified 06/22/20 08:45 Active Medications: Current Medications Acetaminophen (Acetaminophen 325 Mg Tablet) 650 mg PO Q6H PRN PRN Reason: Pain, Mild (Pain Scale 1-3) Last Admin: 07/24/21 01:38 Dose: 650 mg Documented by: Albuterol/Ipratropium (Albuterol/Iprat 2.5/0.5mg 3 Ml Ampul.Neb) 3 ml INHALE Q4H PRN PRN Reason: Shortness of Breath/Wheezing Bupropion HCl (Bupropion Hcl Xl 300 Mg Tab.Er.24h) 300 mg PO DAILY GABI Dextrose (Dextrose 50 % 25 Gm/50 Ml Vial) 25 gm IVPUSH Q15M PRN; Protocol PRN Reason: per Hypoglycemia Standing Ord. Enoxaparin Sodium (Enoxaparin Sodium 40 Mg/0.4 Ml Syringe) 40 mg SUBCUT Q24H GABI Last Admin: 07/23/21 22:39 Dose: 40 mg Documented by: Glucose (Glucose Gel 15 Gm Gel..Gram.) 15 gm PO Q15M PRN; Protocol PRN Reason: per Hypoglycemia Standing Ord. Ceftriaxone Sodium 1 gm/ (Sodium Chloride) 50 mls @ 100 mls/hr IV Q24H [facility] Metronidazole (Flagyl) 500 mg in 100 mls @ 100 mls/hr IV Q8H [facility] Last Infusion: 07/24/21 07:46 Dose: Infused Documented by: Azithromycin 500 mg/ Sodium (Chloride) 250 mls @ 125 mls/hr IV Q24H [facility] Insulin Human Lispro (Insulin Lispro 100 Unit/Ml 3 Ml Vial) 0 unit SUBCUT QIDACHS [facility]; Protocol Last Admin: 07/24/21 07:48 Dose: Not Given Documented by: Melatonin (Melatonin 3 Mg Tablet) 6 mg PO BEDTIME PRN PRN Reason: Insomnia Methylprednisolone Sodium Succinate (Methylprednisolone Sod Succ 40 Mg/Ml Vial) 40 mg IVPUSH Q8H [facility] Last Admin: 07/24/21 03:58 Dose: 40 mg Documented by: Morphine Sulfate (Morphine Sulfate 4 Mg/Ml Cartridge) 1 mg IVPUSH Q4H PRN; Protocol PRN Reason: Pain, SOB Last Admin: 07/24/21 01:39 Dose: 1 mg Documented by: Omeprazole (Omeprazole 20 Mg Capsule.) 20 mg PO DAILY@0630 [facility] Last Admin: 07/24/21 06:11 Dose: 20 mg Documented by: Senna (Sennosides 8.6 Mg Tablet) 17.2 mg PO BEDTIME PRN PRN Reason: Constipation Sodium Chloride (0.9 % Sodium Chloride Flush 3 Ml Syringe) 3 ml IVFLUSH QSHIFT [facility] Last Admin: 07/24/21 00:31 Dose: Not Given Documented by: Home Medications Medication Instructions Recorded Confirmed Last Taken Type bupropion HCl 300 mg 24 hr tablet, 300 mg PO DAILY 07/23/21 07/23/21 Unknown History extended release metformin 750 mg tablet,extended 1,500 mg PO DAILY 07/23/21 07/23/21 Unknown History release 24 hr omeprazole 20 mg capsule,delayed 20 mg PO DAILY 07/23/21 07/23/21 Unknown History release Physical Exam Vital Signs: Vital Signs: Last Vital Signs Temp 99.5 F 07/23/21 23:41 Pulse 100 07/24/21 05:27 Resp 15 07/24/21 09:08 BP 110/74 07/24/21 05:27 Pulse Ox 97 07/24/21 05:27 BMI result Body Mass Index 48.7 GENERAL APPEARANCE: On high-flow nasal cannula. NECK: no carotid bruit, no jugular venous distention. SKIN: no suspicious lesions, warm and dry. HEART: no murmurs, regular tachycardia. LUNGS: clear to auscultation anteriorly. ABDOMEN: soft, nontender. EXTREMITIES: no edema. PERIPHERAL PULSES: equal. NEUROLOGIC: No gross deficits, AAO X 3 Objective Labs and Meds Result diagrams: 07/24/21 06:28 07/24/21 06:28 Lab results: Laboratory Results - last 24 hr 07/23/21 07/23/21 07/23/21 16:42 16:42 16:42 WBC 21.0 H RBC 4.76 Hgb 12.1 L Hct 39.5 L MCV 83.0 MCH 25.4 L MCHC 30.6 L RDW 15.4 Plt Count 306 MPV 8.6 L Immature Gran % (Auto) 1.2 H Neut % (Auto) 87.1 H Lymph % (Auto) 6.0 L Clark % (Auto) 5.4 Eos % (Auto) 0.1 Baso % (Auto) 0.2 Lymph # (Auto) 1.3 Clark # (Auto) 1.1 Eos # (Auto) 0.0 Baso # (Auto) 0.1 Abs Immat Gran (auto) 0.26 H Absolute Neuts (auto) 18.2 H Absolute Nucleated RBC 0.000 Nucleated RBC % (auto) 0.0 Smear Tech's Comments PT 13.5 H INR 1.2 H APTT 29.0 D-Dimer High Sensitivty 1068 O2 Saturation ABG pH at Pt Temp ABG pH (Temp Correct) ABG pCO2 at Pt Temp ABG pCO2 (Temp Corrct ABG pO2 at Pt Temp ABG pO2 (Temp Correct ABG HCO3 ABG Base Excess (Actual) Sodium 138 Potassium 4.8 Chloride 104 Carbon Dioxide 24 Anion Gap 15 BUN 20 H Creatinine 1.24 Estim Creat Clear Calc 141.7 Estimated GFR > 60 POC Glucose Random Glucose 161 H D Lactic Acid Calcium 8.8 D Total Bilirubin 0.3 AST 82 H ALT 88 H Alkaline Phosphatase 99 Troponin I High Sens B-Natriuretic Peptide Total Protein 7.4 Albumin 4.2 Lipase 11 Urine Opiates Screen Urine Fentanyl Screen Ur Barbiturates Screen Ur Phencyclidine Scrn Ur Amphetamines Screen U Benzodiazepines Scrn Urine Cocaine Screen U Marijuana (THC) Screen COVID-19 (DOMINIQUE) COVID-19 Clin Com Influenza Type A (PCR) Influenza Type B (PCR) RSV RNA Qual (PCR) SARS-CoV-2 RNA (RT-PCR) 07/23/21 07/23/21 07/23/21 16:42 16:43 18:32 WBC RBC Hgb Hct MCV MCH MCHC RDW Plt Count MPV Immature Gran % (Auto) Neut % (Auto) Lymph % (Auto) Clark % (Auto) Eos % (Auto) Baso % (Auto) Lymph # (Auto) Clark # (Auto) Eos # (Auto) Baso # (Auto) Abs Immat Gran (auto) Absolute Neuts (auto) Absolute Nucleated RBC Nucleated RBC % (auto) Smear Tech's Comments PT INR APTT D-Dimer High Sensitivty O2 Saturation ABG pH at Pt Temp ABG pH (Temp Correct) ABG pCO2 at Pt Temp ABG pCO2 (Temp Corrct ABG pO2 at Pt Temp ABG pO2 (Temp Correct ABG HCO3 ABG Base Excess (Actual) Sodium Potassium Chloride Carbon Dioxide Anion Gap BUN Creatinine Estim Creat Clear Calc Estimated GFR POC Glucose Random Glucose Lactic Acid Calcium Total Bilirubin AST ALT Alkaline Phosphatase Troponin I High Sens 163.7 H* 396.7 H* D B-Natriuretic Peptide 23 Total Protein Albumin Lipase Urine Opiates Screen Urine Fentanyl Screen Ur Barbiturates Screen Ur Phencyclidine Scrn Ur Amphetamines Screen U Benzodiazepines Scrn Urine Cocaine Screen U Marijuana (THC) Screen COVID-19 (DOMINIQUE) Negative COVID-19 Clin Com See Note Influenza Type A (PCR) Influenza Type B (PCR) RSV RNA Qual (PCR) SARS-CoV-2 RNA (RT-PCR) 07/23/21 07/23/21 07/23/21 18:32 18:38 19:40 WBC RBC Hgb Hct MCV MCH MCHC RDW Plt Count MPV Immature Gran % (Auto) Neut % (Auto) Lymph % (Auto) Clark % (Auto) Eos % (Auto) Baso % (Auto) Lymph # (Auto) Clark # (Auto) Eos # (Auto) Baso # (Auto) Abs Immat Gran (auto) Absolute Neuts (auto) Absolute Nucleated RBC Nucleated RBC % (auto) Smear Tech's Comments PT INR APTT D-Dimer High Sensitivty O2 Saturation ABG pH at Pt Temp ABG pH (Temp Correct) ABG pCO2 at Pt Temp ABG pCO2 (Temp Corrct ABG pO2 at Pt Temp ABG pO2 (Temp Correct ABG HCO3 ABG Base Excess (Actual) Sodium Potassium Chloride Carbon Dioxide Anion Gap BUN Creatinine Estim Creat Clear Calc Estimated GFR POC Glucose Random Glucose Lactic Acid 1.8 Calcium Total Bilirubin AST ALT Alkaline Phosphatase Troponin I High Sens B-Natriuretic Peptide Total Protein Albumin Lipase Urine Opiates Screen POSITIVE H Urine Fentanyl Screen POSITIVE H Ur Barbiturates Screen Not Detected Ur Phencyclidine Scrn Not Detected Ur Amphetamines Screen Not Detected U Benzodiazepines Scrn Not Detected Urine Cocaine Screen Not Detected U Marijuana (THC) Screen Not Detected COVID-19 (DOMINIQUE) COVID-19 Clin Com Influenza Type A (PCR) NEGATIVE Influenza Type B (PCR) NEGATIVE RSV RNA Qual (PCR) NEGATIVE SARS-CoV-2 RNA (RT-PCR) NEGATIVE 07/23/21 07/23/21 07/23/21 19:47 21:15 23:01 WBC RBC Hgb Hct MCV MCH MCHC RDW Plt Count MPV Immature Gran % (Auto) Neut % (Auto) Lymph % (Auto) Clark % (Auto) Eos % (Auto) Baso % (Auto) Lymph # (Auto) Clark # (Auto) Eos # (Auto) Baso # (Auto) Abs Immat Gran (auto) Absolute Neuts (auto) Absolute Nucleated RBC Nucleated RBC % (auto) Smear Tech's Comments PT INR APTT D-Dimer High Sensitivty O2 Saturation 95.0 ABG pH at Pt Temp 7.37 ABG pH (Temp Correct) 7.36 ABG pCO2 at Pt Temp 40 ABG pCO2 (Temp Corrct 40 ABG pO2 at Pt Temp 89 ABG pO2 (Temp Correct 90 ABG HCO3 23 ABG Base Excess (Actual) -1.7 Sodium Potassium Chloride Carbon Dioxide Anion Gap BUN Creatinine Estim Creat Clear Calc Estimated GFR POC Glucose 95 131 H Random Glucose Lactic Acid Calcium Total Bilirubin AST ALT Alkaline Phosphatase Troponin I High Sens B-Natriuretic Peptide Total Protein Albumin Lipase Urine Opiates Screen Urine Fentanyl Screen Ur Barbiturates Screen Ur Phencyclidine Scrn Ur Amphetamines Screen U Benzodiazepines Scrn Urine Cocaine Screen U Marijuana (THC) Screen COVID-19 (DOMINIQUE) COVID-19 Clin Com Influenza Type A (PCR) Influenza Type B (PCR) RSV RNA Qual (PCR) SARS-CoV-2 RNA (RT-PCR) 07/24/21 07/24/21 07/24/21 06:28 06:28 07:28 WBC 23.6 H RBC 4.40 L Hgb 11.3 L Hct 36.5 L MCV 83.0 MCH 25.7 L MCHC 31.0 RDW 15.5 Plt Count 276 MPV 8.7 L Immature Gran % (Auto) 0.6 H Neut % (Auto) 93.3 H Lymph % (Auto) 3.9 L Clark % (Auto) 2.1 Eos % (Auto) 0.0 Baso % (Auto) 0.1 Lymph # (Auto) 0.9 L Clark # (Auto) 0.5 Eos # (Auto) 0.0 Baso # (Auto) 0.0 Abs Immat Gran (auto) 0.13 H Absolute Neuts (auto) 22.0 H Absolute Nucleated RBC 0.000 Nucleated RBC % (auto) 0.0 Smear Tech's Comments VERIFIED PT INR APTT D-Dimer High Sensitivty O2 Saturation ABG pH at Pt Temp ABG pH (Temp Correct) ABG pCO2 at Pt Temp ABG pCO2 (Temp Corrct ABG pO2 at Pt Temp ABG pO2 (Temp Correct ABG HCO3 ABG Base Excess (Actual) Sodium 138 Potassium 5.1 Chloride 106 Carbon Dioxide 23 Anion Gap 14 BUN 17 H Creatinine 0.89 Estim Creat Clear Calc 197.4 Estimated GFR > 60 POC Glucose 131 H Random Glucose 146 H Lactic Acid Calcium 8.8 Total Bilirubin AST ALT Alkaline Phosphatase Troponin I High Sens B-Natriuretic Peptide Total Protein Albumin Lipase Urine Opiates Screen Urine Fentanyl Screen Ur Barbiturates Screen Ur Phencyclidine Scrn Ur Amphetamines Screen U Benzodiazepines Scrn Urine Cocaine Screen U Marijuana (THC) Screen COVID-19 (DOMINIQUE) COVID-19 Clin Com Influenza Type A (PCR) Influenza Type B (PCR) RSV RNA Qual (PCR) SARS-CoV-2 RNA (RT-PCR) Imaging Radiologist's impression: Impressions Head CT 07/23/21 17:15 IMPRESSION: Normal noncontrast head CT. No intracranial bleed. Normal CT scan does not rule out the possibility of hyperacute infarct in the first 12 hours. If patient symptoms persist may consider correlation with MRI, which is more sensitive for early acute infarct. This critical result was discussed with Kev Garcia MD by telephone at 07/23/2021 5: 20 PM and it was ascertained that the content and urgency of the report was understood at the time of direct communication. Chest CTA 07/23/21 17:32 IMPRESSION: 1. No pulmonary emboli are detected. 2. Diffuse extensive multifocal infiltrates as described above. 3. Enlarged fatty liver with splenomegaly VTE: negative Venous Duplex 07/23/21 19:17 IMPRESSION: No DVT demonstrated in the left lower extremity. Assessment and Plan (1) Hypoxia: Status: Acute (2) Elevated troponin: Status: Acute (3) Acute respiratory failure with hypoxia: Status: Acute 35-year-old gentleman presenting for pneumonia and some concern for aspiration. He is on IV antibiotics. Mildly abnormal troponin levels which are due to hypoxia. I think he has a type 2 OR. continue antibiotics as before. We will review echocardiography for any wall motion abnormality. Unclear whether he had syncope or not. He was confused which is not unusual with hypoxia due to infection. Thank you for allowing me to participate in the care of your patient. Please feel free to contact me if you have any questions. Procedures Date of Service Date of Service: 07/24/21
--- NOTE | 2021-07-24 09:34 | MHC.RECOVSUP ---
Recovery Support note: Patient is a 35 year old Ivorian speaking male who presented to [facility] due to stroke like symptoms. This production underwriter met with patient to discuss substance use and recovery supports. Patient denies current substance use. 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 Patient reports he forgot about it and put his sweatshirt on before bed and woke up feeling altered. Patient states he believes this is why he tested positive. This production underwriter reassured patient that we just want to provide the care that he can benefit from the most and patient acknowledged. Patient continues to deny substance use. Encouraged patient to reach out to staff if he would like to discuss this further. Patient acknowledged. Discussed case with Ana Sorto NP.
[2021-07-24] MEDS: buPROPion HCl XL 300 MG TAB.ER.24H PO (09:37)
[2021-07-24] MEDS: 0.9 % Sodium Chloride Flush 3 ML SYRINGE IVFLUSH ×2 (09:39→23:06)
--- NOTE | 2021-07-24 11:00 | CA_ITS ---
Transthoracic Echocardiogram Patient (Last, First, Middle): Shlomo Paredes, Gender: Male Date of : 1985 Age: 35 Procedure Date: 07/24/2021 Procedure Type: Transthoracic Echocardiogram Location: ER Height: 187.96 cm Weight: 172.37 kg BSA: 2.85 m2 Heart Rate: bpm BP: 110 / 74 mmHg Dryer Operator: Referring MD: Lance Cole MD Symptoms: elevated troponin Study Quality: Technically Difficult due to obesity ECG Rhythm: Sinus Conclusions: - Normal left ventricular size and systolic function. - There is moderately increased left ventricular wall thickness. - The visually estimated ejection fraction is between 55-60%. - Normal right ventricular cavity size and systolic function. - The left atrium is mildly dilated. Findings Left Ventricle Normal left ventricular size and systolic function. There is moderately increased left ventricular wall thickness. The visually estimated ejection fraction is between 55-60%. There is no evidence of regional wall motion abnormalities. Diastolic function is normal for age. Right Ventricle Normal right ventricular cavity size and systolic function. Atria The left atrium is mildly dilated. Aortic Valve There is a normal trileaflet aortic valve. There is no aortic valve stenosis. There is no aortic valve regurgitation. Mitral Valve Normal mitral valve structure and function. There is no mitral valve regurgitation. There is no mitral valve stenosis. Pulmonic Valve The pulmonic valve was not well visualized. Tricuspid Valve Normal tricuspid valve structure. There is trace tricuspid valve regurgitation. Indeterminate right atrial pressure. Great Vessels All visible segments of the aorta are normal in size. The pulmonary artery was not well visualized. Venous The inferior vena cava was not well visualized. Pericardium/Pleural There is no evidence of pericardial effusion. Prior Study Comparison No prior study available for comparison. Measurements 2D Linear Measurements IVSd: 1.35 0.6-0.9/0.6-1.0 cm LVIDd: 5.00 3.9-5.3/4.2-5.9 cm LVIDd Index: 1.75 2.4-3.2/2.2-3.1 cm/m2 LVIDs: 3.55 2.0-3.6 cm LVPWd: 1.26 0.7-1.1 cm Ao Root: 3.40 2.1-3.5 cm LA Diam: 4.50 2.7-3.8/3.0-4.0 cm LAIDs Index: 1.58 1.5-2.3 cm/m2 LV Mass: 328.34 67-162/88-224 g LV Mass Index: 115.21 43-95/49-115 g/m2 LVOT Diam: 2.60 3.0+(-)1.3 cm Mitral Valve MV Pk E: 1.03 MV PK A: 0.46 MV Decel Time: 88.00 E/A: 2.20 E'Lateral: 15.90 E'Medial: 9.68 E/E' Med: 10.60 E/E' Lat: 6.50 PHT: 26.00 MVA PHT: 8.46 Decel [place]: 11.75 Aortic Valve AoV Pk Husam: 1.31 AoV Mn Husam: 0.89 AoV VTI: 0.26 AoV Pk Grad: 7.00 Aov Mn Grad: 4.00 JOSESITO Cont.VTI: 3.38 LVOT LVOT Pk Husam: 0.84 LVOT Mn Husam: 0.58 LVOT VTI: 0.16 LVOT Pk Grad: 3.00 LVOT Mn Grad: 2.00 LVOT Diam: 2.60 LVOT Area: 5.31 Diastolic Function MV Pk E: 1.03 MV Pk A: 0.46 E/A: 2.20 E'Medial: 9.68 E/E' Med: 10.60 E' Laterial: 15.90 E/E' Lat: 6.50 Right Ventricle TAPSE (mm): 23.00 Tricuspid Valve TR Pk Husam: 2.37 TR Pk Grad: 22.00 RA Press: 3.00 RVSP: 25.00 Great Vessels Aorta Ao Root-2D: 3.40 2.0-3.7 cm Ao Asc: 3.10 2.1-3.4 cm Pulmonary Valve PV Pk Husam: 1.00 Peak PV Grad: 4.00 Updated in Other Vendor System with Status of Final Clark Lizarraga MD electronically signed on 07/24/2021 6:12:25 PM with status of Final
[2021-07-24 11:36] LABS: Glucose, Whole Blood 154 mg/dL (60-115)
--- NOTE | 2021-07-24 11:49 | MHC.CM.PN ---
Met with patient in regards to discharge planning. Patient lives with his , ambulates independently and had no services prior to coming to the hospital. 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 No services anticipated to be needed because patient is not homebound. PCP verified. Patient denies having a HCP. Patient received 3 doses of Pfizer vaccines. Patient's will transport him home when medically stable. Continue to monitor for d/c needs.
--- NOTE | 2021-07-24 12:07 | P.CONPL_ITS ---
History of Present Illness History of Present Illness Consult date: 07/24/21 Chief complaint: Acute hypoxia Narrative: 35-year-old gentleman, intermittent smoker with no underlying history of lung disease except JENNIFER on CPAP hospitalized on 07/23/2021 with acute onset of hypoxia. Patient states that he has been exposed to fentanyl powder sometime before the admission. On ER evaluation he was noted to be hypoxemic requiring high-flow nasal cannula to maintain normoxemia. His CT angiogram was negative for pulmonary emboli, however it showed bilateral multifocal peribronchovascular ground-glass infiltrates. Patient also has had frothy pinkish cough. He was ruled out for myocardial infarction and started on empiric coverage for community-acquired pneumonia and systemic glucocorticoids. This a.m. patient's oxygen requirements improved to 8-10 L via nasal cannula. Review of Systems Constitutional: Constitutional: Denies daytime sleepiness, Denies excessive sweating, Denies fatigue, Denies fever(s), Denies lethargy, Denies malaise, Denies night sweats, Denies snoring and Denies weight loss Eyes: Eyes: Denies blurry vision and Denies itchy eyes ENT: Denies nasal congestion, Denies post nasal drip, Denies sinus pain, Denies sinus pressure and Denies other ( Thrush) Cardiovascular: Cardiovascular: Denies chest pain, Denies pedal edema, Reports dyspnea, Denies orthopnea and Denies paroxysmal nocturnal dyspnea Respiratory: Respiratory: Denies cough, Denies hemoptysis, Denies excessive phlegm production, Reports dyspnea, Denies snoring and Denies wheezing Gastrointestinal: Gastrointestinal: Denies abdominal pain and Denies heartburn Musculoskeletal: Musculoskeletal: Denies myalgias, Denies arthralgias and Denies joint swelling Integumentary/Breasts: Skin/Breast: Denies rash Neurologic: Denies memory loss and Denies seizure-like activity Psychiatric: Psychiatric: Denies abnormal sleep pattern, Denies anxiety and Denies memory loss Endocrine: Endocrine: Denies excessive sweating, Denies fatigue and Denies heat intolerance Hematologic/Lymphatic: Hematologic/Lymphatic: Denies easy bruising Allergic/Immunologic: Allergic/Immunologic: Denies itchy eyes, Denies seasonal rhinorrhea and Denies wheezing PMFSH Past Medical History Medical History Depression Diverticulitis GERD (gastroesophageal reflux disease) Social History Social History Alcohol intake: current Alcohol intake frequency: 3 or more drinks per day Alcohol type: hard liquor Advance Directives: No Advance Directives Information Provided: Yes service: No Current occupational status: employed Meds Allergies Allergy/AdvReac Type Severity Reaction Status Date / Time No Known Allergies Allergy Verified 06/22/20 08:45 Active Medications: Current Medications Acetaminophen (Acetaminophen 325 Mg Tablet) 650 mg PO Q6H PRN PRN Reason: Pain, Mild (Pain Scale 1-3) Last Admin: 07/24/21 01:38 Dose: 650 mg Documented by: Albuterol/Ipratropium (Albuterol/Iprat 2.5/0.5mg 3 Ml Ampul.Neb) 3 ml INHALE Q4H PRN PRN Reason: Shortness of Breath/Wheezing Bupropion HCl (Bupropion Hcl Xl 300 Mg Tab.Er.24h) 300 mg PO DAILY [facility] Last Admin: 07/24/21 09:37 Dose: 300 mg Documented by: Dextrose (Dextrose 50 % 25 Gm/50 Ml Vial) 25 gm IVPUSH Q15M PRN; Protocol PRN Reason: per Hypoglycemia Standing Ord. Enoxaparin Sodium (Enoxaparin Sodium 40 Mg/0.4 Ml Syringe) 40 mg SUBCUT Q24H [facility] Last Admin: 07/23/21 22:39 Dose: 40 mg Documented by: Glucose (Glucose Gel 15 Gm Gel..Gram.) 15 gm PO Q15M PRN; Protocol PRN Reason: per Hypoglycemia Standing Ord. Ceftriaxone Sodium 1 gm/ (Sodium Chloride) 50 mls @ 100 mls/hr IV Q24H [facility] Metronidazole (Flagyl) 500 mg in 100 mls @ 100 mls/hr IV Q8H [facility] Last Infusion: 07/24/21 07:46 Dose: Infused Documented by: Azithromycin 500 mg/ Sodium (Chloride) 250 mls @ 125 mls/hr IV Q24H [facility] Insulin Human Lispro (Insulin Lispro 100 Unit/Ml 3 Ml Vial) 0 unit SUBCUT QIDACHS [facility]; Protocol Last Admin: 07/24/21 07:48 Dose: Not Given Documented by: Melatonin (Melatonin 3 Mg Tablet) 6 mg PO BEDTIME PRN PRN Reason: Insomnia Methylprednisolone Sodium Succinate (Methylprednisolone Sod Succ 40 Mg/Ml Vial) 40 mg IVPUSH Q8H [facility] Morphine Sulfate (Morphine Sulfate 4 Mg/Ml Cartridge) 1 mg IVPUSH Q4H PRN; Protocol PRN Reason: Pain, SOB Last Admin: 07/24/21 09:49 Dose: 1 mg Documented by: Omeprazole (Omeprazole 20 Mg Capsule.) 20 mg PO DAILY@0630 [facility] Last Admin: 07/24/21 06:11 Dose: 20 mg Documented by: Senna (Sennosides 8.6 Mg Tablet) 17.2 mg PO BEDTIME PRN PRN Reason: Constipation Sodium Chloride (0.9 % Sodium Chloride Flush 3 Ml Syringe) 3 ml IVFLUSH QSHIFT [facility] Last Admin: 07/24/21 09:39 Dose: 3 ml Documented by: Home Medications Medication Instructions Recorded Confirmed Last Taken Type bupropion HCl 300 mg 24 hr tablet, 300 mg PO DAILY 07/23/21 07/23/21 Unknown History extended release metformin 750 mg tablet,extended 1,500 mg PO DAILY 07/23/21 07/23/21 Unknown History release 24 hr omeprazole 20 mg capsule,delayed 20 mg PO DAILY 07/23/21 07/23/21 Unknown History release Physical Exam Vital Signs: Vital Signs: Last Vital Signs Temp 99.5 F 07/23/21 23:41 Pulse 106 H 07/24/21 09:54 Resp 18 07/24/21 09:54 BP 117/75 07/24/21 09:54 Pulse Ox 95 07/24/21 09:54 BMI result Body Mass Index 48.7 Const: General: no acute distress, alert and awake Nutritional Appearance: obese Eyes: Sclerae: sclerae normal EOM: EOMs intact bilaterally Neck: Neck: Yes no lymphadenopathy, Yes trachea midline and Yes supple Resp: Effort & Inspection: normal respiratory effort and no respiratory distress Auscultation: wheezes expiratory wheezes (Diffuse bilateral) Cardio: Rate: regular rate Rhythm: regular rhythm Heart sounds: no gallops, no murmurs and no rubs GI: Palpation (GI): Soft to palpation and Other GI palpation findings present ( Nontender) Auscultation: normal bowel sounds Extrem: General: Yes no pedal edema, No clubbing and No cyanosis Results Laboratory Findings CBC and BMP: 07/24/21 06:28 07/24/21 06:28 ABG, PT/INR, D-dimer: PT/INR, D-dimer PT 13.5 SEC (9.9-13.0) H 07/23/21 16:42 INR 1.2 (0.9-1.1) H 07/23/21 16:42 Abnormal lab findings: Abnormal Labs 07/23/21 07/23/21 07/23/21 16:42 16:42 16:42 WBC 21.0 H RBC Hgb 12.1 L Hct 39.5 L MCH 25.4 L MCHC 30.6 L MPV 8.6 L Immature Gran % (Auto) 1.2 H Neut % (Auto) 87.1 H Lymph % (Auto) 6.0 L Lymph # (Auto) Abs Immat Gran (auto) 0.26 H Absolute Neuts (auto) 18.2 H PT 13.5 H INR 1.2 H BUN 20 H POC Glucose Random Glucose 161 H D AST 82 H ALT 88 H Troponin I High Sens Urine Opiates Screen Urine Fentanyl Screen 07/23/21 07/23/21 07/23/21 16:42 18:32 19:40 WBC RBC Hgb Hct MCH MCHC MPV Immature Gran % (Auto) Neut % (Auto) Lymph % (Auto) Lymph # (Auto) Abs Immat Gran (auto) Absolute Neuts (auto) PT INR BUN POC Glucose Random Glucose AST ALT Troponin I High Sens 163.7 H* 396.7 H* D Urine Opiates Screen POSITIVE H Urine Fentanyl Screen POSITIVE H 07/23/21 07/24/21 07/24/21 23:01 06:28 06:28 WBC 23.6 H RBC 4.40 L Hgb 11.3 L Hct 36.5 L MCH 25.7 L MCHC MPV 8.7 L Immature Gran % (Auto) 0.6 H Neut % (Auto) 93.3 H Lymph % (Auto) 3.9 L Lymph # (Auto) 0.9 L Abs Immat Gran (auto) 0.13 H Absolute Neuts (auto) 22.0 H PT INR BUN 17 H POC Glucose 131 H Random Glucose 146 H AST ALT Troponin I High Sens Urine Opiates Screen Urine Fentanyl Screen 07/24/21 07/24/21 07:28 11:32 WBC RBC Hgb Hct MCH MCHC MPV Immature Gran % (Auto) Neut % (Auto) Lymph % (Auto) Lymph # (Auto) Abs Immat Gran (auto) Absolute Neuts (auto) PT INR BUN POC Glucose 131 H 154 H Random Glucose AST ALT Troponin I High Sens Urine Opiates Screen Urine Fentanyl Screen Assessment and Plan (1) Acute lung injury: Status: Acute (2) Acute respiratory failure with hypoxia: Status: Acute Impression: 35-year-old gentleman admitted with acute hypoxic respiratory failure, likely secondary to acute lung injury from exposure to fentanyl powder with unclear additives with possible resulting diffuse alveolar hemorrhage. Community-acquired pneumonia is less likely. Now improving with systemic glucocorticoids. Recommendation: Agree with evaluation of underlying cardiac function with echocardiogram, continuation of systemic glucocorticoids, at least at 1 milligram/kilogram of prednisone equivalent per day, agree with finishing community-acquired pneumonia antibiotic regimen. Procedures Date of Service Date of Service: 07/24/21
[2021-07-24] MEDS: Insulin Lispro 100 UNIT/ML 3 ML VIAL SUBCUT (12:40)
--- NOTE | 2021-07-24 13:25 | P.PNIM_ITS ---
Subjective Subjective Date of Service: 07/24/21 Interval History: breathing continues to improve. Weaned off of high-flow to nasal can Review of Systems denies chest pain Shortness of breath improving. Denies nausea vomiting diarrhea Physical Exam Vital Signs: Vital Signs: Last Vital Signs Temp 99.5 F 07/23/21 23:41 Pulse 106 H 07/24/21 09:54 Resp 18 07/24/21 09:54 BP 117/75 07/24/21 09:54 Pulse Ox 95 07/24/21 09:54 BMI result Body Mass Index 48.7 Const: Other: no acute distress Resp: Other: coarse breath sounds throughout with diffuse expiratory wheezes Cardio: Other: no S4; positive S1-S2; GI: Other: obese soft nontender with normoactive bowel sounds Neuro: Other: cranial nerves 2-12 grossly intact as tested. motor is 5/5 all extremities; sensation intact cogni Extrem: Other: no edema Objective Data Active Medications Acetaminophen (Acetaminophen 325 Mg Tablet) 650 mg PO Q6H PRN PRN Reason: Pain, Mild (Pain Scale 1-3) Last Admin: 07/24/21 01:38 Dose: 650 mg Documented by: SHERIE Albuterol/Ipratropium (Albuterol/Iprat 2.5/0.5mg 3 Ml Ampul.Neb) 3 ml INHALE Q4H PRN PRN Reason: Shortness of Breath/Wheezing Bupropion HCl (Bupropion Hcl Xl 300 Mg Tab.Er.24h) 300 mg PO DAILY [facility] Last Admin: 07/24/21 09:37 Dose: 300 mg Documented by: WOO-RAMANTONINA Dextrose (Dextrose 50 % 25 Gm/50 Ml Vial) 25 gm IVPUSH Q15M PRN; Protocol PRN Reason: per Hypoglycemia Standing Ord. Enoxaparin Sodium (Enoxaparin Sodium 40 Mg/0.4 Ml Syringe) 40 mg SUBCUT Q24H [facility] Last Admin: 07/23/21 22:39 Dose: 40 mg Documented by: MCTA Glucose (Glucose Gel 15 Gm Gel..Gram.) 15 gm PO Q15M PRN; Protocol PRN Reason: per Hypoglycemia Standing Ord. Ceftriaxone Sodium 1 gm/ (Sodium Chloride) 50 mls @ 100 mls/hr IV Q24H [facility] Metronidazole (Flagyl) 500 mg in 100 mls @ 100 mls/hr IV Q8H [facility] Last Infusion: 07/24/21 07:46 Dose: 0 mls/hr Documented by: DISHA Azithromycin 500 mg/ Sodium (Chloride) 250 mls @ 125 mls/hr IV Q24H [facility] Insulin Human Lispro (Insulin Lispro 100 Unit/Ml 3 Ml Vial) 0 unit SUBCUT QIDACHS [facility]; Protocol Last Admin: 07/24/21 12:40 Dose: 2 unit Documented by: DISHA Melatonin (Melatonin 3 Mg Tablet) 6 mg PO BEDTIME PRN PRN Reason: Insomnia Methylprednisolone Sodium Succinate (Methylprednisolone Sod Succ 40 Mg/Ml Vial) 40 mg IVPUSH Q8H [facility] Last Admin: 07/24/21 12:40 Dose: 40 mg Documented by: DISHA Morphine Sulfate (Morphine Sulfate 4 Mg/Ml Cartridge) 1 mg IVPUSH Q4H PRN; Protocol PRN Reason: Pain, SOB Last Admin: 07/24/21 09:49 Dose: 1 mg Documented by: DISHA Omeprazole (Omeprazole 20 Mg Capsule.) 20 mg PO DAILY@0630 [facility] Last Admin: 07/24/21 06:11 Dose: 20 mg Documented by: MCTKajal Senna (Sennosides 8.6 Mg Tablet) 17.2 mg PO BEDTIME PRN PRN Reason: Constipation Sodium Chloride (0.9 % Sodium Chloride Flush 3 Ml Syringe) 3 ml IVFLUSH QSHIFT [facility] Last Admin: 07/24/21 09:39 Dose: 3 ml Documented by: DISHA Labs CBC & Chem 7: 07/24/21 06:28 07/24/21 06:28 Labs: Laboratory Results - last 24 hr 07/23/21 07/23/21 07/23/21 16:42 16:42 16:42 MCV 83.0 MCH 25.4 L MCHC 30.6 L RDW 15.4 Plt Count 306 MPV 8.6 L Immature Gran % (Auto) 1.2 H Neut % (Auto) 87.1 H Lymph % (Auto) 6.0 L Orange % (Auto) 5.4 Eos % (Auto) 0.1 Baso % (Auto) 0.2 Lymph # (Auto) 1.3 Orange # (Auto) 1.1 Eos # (Auto) 0.0 Baso # (Auto) 0.1 Abs Immat Gran (auto) 0.26 H Absolute Neuts (auto) 18.2 H Absolute Nucleated RBC 0.000 Nucleated RBC % (auto) 0.0 Smear Tech's Comments PT 13.5 H INR 1.2 H APTT 29.0 D-Dimer High Sensitivty 1068 O2 Saturation ABG pH at Pt Temp ABG pH (Temp Correct) ABG pCO2 at Pt Temp ABG pCO2 (Temp Corrct ABG pO2 at Pt Temp ABG pO2 (Temp Correct ABG HCO3 ABG Base Excess (Actual) Anion Gap 15 Estim Creat Clear Calc 141.7 Estimated GFR > 60 POC Glucose Random Glucose 161 H D Lactic Acid Calcium 8.8 D Total Bilirubin 0.3 AST 82 H ALT 88 H Alkaline Phosphatase 99 Troponin I High Sens B-Natriuretic Peptide Total Protein 7.4 Albumin 4.2 Lipase 11 Urine Opiates Screen Urine Fentanyl Screen Ur Barbiturates Screen Ur Phencyclidine Scrn Ur Amphetamines Screen U Benzodiazepines Scrn Urine Cocaine Screen U Marijuana (THC) Screen COVID-19 (DOMINIQUE) COVID-19 Clin Com Influenza Type A (PCR) Influenza Type B (PCR) RSV RNA Qual (PCR) SARS-CoV-2 RNA (RT-PCR) 07/23/21 07/23/21 07/23/21 16:42 16:43 18:32 MCV MCH MCHC RDW Plt Count MPV Immature Gran % (Auto) Neut % (Auto) Lymph % (Auto) Orange % (Auto) Eos % (Auto) Baso % (Auto) Lymph # (Auto) Orange # (Auto) Eos # (Auto) Baso # (Auto) Abs Immat Gran (auto) Absolute Neuts (auto) Absolute Nucleated RBC Nucleated RBC % (auto) Smear Tech's Comments PT INR APTT D-Dimer High Sensitivty O2 Saturation ABG pH at Pt Temp ABG pH (Temp Correct) ABG pCO2 at Pt Temp ABG pCO2 (Temp Corrct ABG pO2 at Pt Temp ABG pO2 (Temp Correct ABG HCO3 ABG Base Excess (Actual) Anion Gap Estim Creat Clear Calc Estimated GFR POC Glucose Random Glucose Lactic Acid Calcium Total Bilirubin AST ALT Alkaline Phosphatase Troponin I High Sens 163.7 H* 396.7 H* D B-Natriuretic Peptide 23 Total Protein Albumin Lipase Urine Opiates Screen Urine Fentanyl Screen Ur Barbiturates Screen Ur Phencyclidine Scrn Ur Amphetamines Screen U Benzodiazepines Scrn Urine Cocaine Screen U Marijuana (THC) Screen COVID-19 (DOMINIQUE) Negative COVID-19 Clin Com See Note Influenza Type A (PCR) Influenza Type B (PCR) RSV RNA Qual (PCR) SARS-CoV-2 RNA (RT-PCR) 07/23/21 07/23/21 07/23/21 18:32 18:38 19:40 MCV MCH MCHC RDW Plt Count MPV Immature Gran % (Auto) Neut % (Auto) Lymph % (Auto) Orange % (Auto) Eos % (Auto) Baso % (Auto) Lymph # (Auto) Orange # (Auto) Eos # (Auto) Baso # (Auto) Abs Immat Gran (auto) Absolute Neuts (auto) Absolute Nucleated RBC Nucleated RBC % (auto) Smear Tech's Comments PT INR APTT D-Dimer High Sensitivty O2 Saturation ABG pH at Pt Temp ABG pH (Temp Correct) ABG pCO2 at Pt Temp ABG pCO2 (Temp Corrct ABG pO2 at Pt Temp ABG pO2 (Temp Correct ABG HCO3 ABG Base Excess (Actual) Anion Gap Estim Creat Clear Calc Estimated GFR POC Glucose Random Glucose Lactic Acid 1.8 Calcium Total Bilirubin AST ALT Alkaline Phosphatase Troponin I High Sens B-Natriuretic Peptide Total Protein Albumin Lipase Urine Opiates Screen POSITIVE H Urine Fentanyl Screen POSITIVE H Ur Barbiturates Screen Not Detected Ur Phencyclidine Scrn Not Detected Ur Amphetamines Screen Not Detected U Benzodiazepines Scrn Not Detected Urine Cocaine Screen Not Detected U Marijuana (THC) Screen Not Detected COVID-19 (DOMINIQUE) COVID-19 Clin Com Influenza Type A (PCR) NEGATIVE Influenza Type B (PCR) NEGATIVE RSV RNA Qual (PCR) NEGATIVE SARS-CoV-2 RNA (RT-PCR) NEGATIVE 07/23/21 07/23/21 07/23/21 19:47 21:15 23:01 MCV MCH MCHC RDW Plt Count MPV Immature Gran % (Auto) Neut % (Auto) Lymph % (Auto) Orange % (Auto) Eos % (Auto) Baso % (Auto) Lymph # (Auto) Orange # (Auto) Eos # (Auto) Baso # (Auto) Abs Immat Gran (auto) Absolute Neuts (auto) Absolute Nucleated RBC Nucleated RBC % (auto) Smear Tech's Comments PT INR APTT D-Dimer High Sensitivty O2 Saturation 95.0 ABG pH at Pt Temp 7.37 ABG pH (Temp Correct) 7.36 ABG pCO2 at Pt Temp 40 ABG pCO2 (Temp Corrct 40 ABG pO2 at Pt Temp 89 ABG pO2 (Temp Correct 90 ABG HCO3 23 ABG Base Excess (Actual) -1.7 Anion Gap Estim Creat Clear Calc Estimated GFR POC Glucose 95 131 H Random Glucose Lactic Acid Calcium Total Bilirubin AST ALT Alkaline Phosphatase Troponin I High Sens B-Natriuretic Peptide Total Protein Albumin Lipase Urine Opiates Screen Urine Fentanyl Screen Ur Barbiturates Screen Ur Phencyclidine Scrn Ur Amphetamines Screen U Benzodiazepines Scrn Urine Cocaine Screen U Marijuana (THC) Screen COVID-19 (DOMINIQUE) COVID-19 Clin Com Influenza Type A (PCR) Influenza Type B (PCR) RSV RNA Qual (PCR) SARS-CoV-2 RNA (RT-PCR) 07/24/21 07/24/21 07/24/21 06:28 06:28 07:28 MCV 83.0 MCH 25.7 L MCHC 31.0 RDW 15.5 Plt Count 276 MPV 8.7 L Immature Gran % (Auto) 0.6 H Neut % (Auto) 93.3 H Lymph % (Auto) 3.9 L Orange % (Auto) 2.1 Eos % (Auto) 0.0 Baso % (Auto) 0.1 Lymph # (Auto) 0.9 L Orange # (Auto) 0.5 Eos # (Auto) 0.0 Baso # (Auto) 0.0 Abs Immat Gran (auto) 0.13 H Absolute Neuts (auto) 22.0 H Absolute Nucleated RBC 0.000 Nucleated RBC % (auto) 0.0 Smear Tech's Comments VERIFIED PT INR APTT D-Dimer High Sensitivty O2 Saturation ABG pH at Pt Temp ABG pH (Temp Correct) ABG pCO2 at Pt Temp ABG pCO2 (Temp Corrct ABG pO2 at Pt Temp ABG pO2 (Temp Correct ABG HCO3 ABG Base Excess (Actual) Anion Gap 14 Estim Creat Clear Calc 197.4 Estimated GFR > 60 POC Glucose 131 H Random Glucose 146 H Lactic Acid Calcium 8.8 Total Bilirubin AST ALT Alkaline Phosphatase Troponin I High Sens B-Natriuretic Peptide Total Protein Albumin Lipase Urine Opiates Screen Urine Fentanyl Screen Ur Barbiturates Screen Ur Phencyclidine Scrn Ur Amphetamines Screen U Benzodiazepines Scrn Urine Cocaine Screen U Marijuana (THC) Screen COVID-19 (DOMINIQUE) COVID-19 Clin Com Influenza Type A (PCR) Influenza Type B (PCR) RSV RNA Qual (PCR) SARS-CoV-2 RNA (RT-PCR) 07/24/21 11:32 MCV MCH MCHC RDW Plt Count MPV Immature Gran % (Auto) Neut % (Auto) Lymph % (Auto) Orange % (Auto) Eos % (Auto) Baso % (Auto) Lymph # (Auto) Orange # (Auto) Eos # (Auto) Baso # (Auto) Abs Immat Gran (auto) Absolute Neuts (auto) Absolute Nucleated RBC Nucleated RBC % (auto) Smear Tech's Comments PT INR APTT D-Dimer High Sensitivty O2 Saturation ABG pH at Pt Temp ABG pH (Temp Correct) ABG pCO2 at Pt Temp ABG pCO2 (Temp Corrct ABG pO2 at Pt Temp ABG pO2 (Temp Correct ABG HCO3 ABG Base Excess (Actual) Anion Gap Estim Creat Clear Calc Estimated GFR POC Glucose 154 H Random Glucose Lactic Acid Calcium Total Bilirubin AST ALT Alkaline Phosphatase Troponin I High Sens B-Natriuretic Peptide Total Protein Albumin Lipase Urine Opiates Screen Urine Fentanyl Screen Ur Barbiturates Screen Ur Phencyclidine Scrn Ur Amphetamines Screen U Benzodiazepines Scrn Urine Cocaine Screen U Marijuana (THC) Screen COVID-19 (DOMINIQUE) COVID-19 Clin Com Influenza Type A (PCR) Influenza Type B (PCR) RSV RNA Qual (PCR) SARS-CoV-2 RNA (RT-PCR) Assessment and Plan (1) Acute respiratory failure with hypoxia: Status: Acute (2) Pneumonia: Status: Acute (3) Hypoxia: Status: Acute Assessment and Plan: 35-year-old male with a past medical history of anxiety, depression, diabetes, GERD, JENNIFER on CPAP presented to the hospital with a chief complaint of confusion/ hypoxia. states exposure to fentanyl by inhalation at job 8 hours prior to onset. 1.Acute hypoxic respiratory failure: Query pneumonitis secondary to inhaled toxin less likely infective . Continue CTX/Zithro as ordered;IV Solumedrol q6hrs Titrate O2 as tolerated 2. Type II DM Will cover with Sliding scale. Adjust a indicated. 3. UTox positive: Denies use but unlikley delayed reaction to Fentanyl Addiction Consult 4. GERD Continue PPI 5. JENNIFER CPaP at HS DVT prophylaxis: Lovenox Code status: Full code Quality Stroke Does the patient have a stroke diagnosis?: No VTE Prior VTE?: No VTE Risk Level:: Medical - moderate - high VTE Device Contraindication: Treatment Not Indicated VTE Drug Contraindication: N/A - Med Ordered
--- NOTE | 2021-07-24 17:28 | PC.NURSE ---
Medicated as per [facility] orders for headache, awaiting bed assignment, will continue to monitor.
[2021-07-24 17:52] LABS: Glucose, Whole Blood 139 mg/dL (60-115)
--- NOTE | 2021-07-24 18:14 | PC.NURSE ---
at bedside, pt requesting to know when he will be admitted, process explained. Pt A&Ox3, headache improved after PO Tylenol. Awaiting bed assignment, no BG coverage needed, Willc ontinue to monitor.
[2021-07-24] MEDS: cefTRIAXone sodium 1 GM in 0.9 % Sodium Chloride 50 ML IV (19:00)
[2021-07-24 20:31] LABS: Glucose, Whole Blood 150 mg/dL (60-115)
[2021-07-24] MEDS: Azithromycin 500 MG in 0.9 % Sodium Chloride 250 ML 125 MG IV (20:57)
[2021-07-24] MEDS: Enoxaparin Sodium 40 MG/0.4 ML SYRINGE SUBCUT (23:04)
--- NOTE | 2021-07-24 23:10 | P.CNID_ITS ---
History of Present Illness Data of Consult Service Date: 07/24/21 Requesting physician: Andrew Ann Primary Care Provider: Barney House MD [facility] Reason for consult: shortness of breath He presents with cough and shortness of breath for eight hours. He has no nausea or vomiting He has had fentanyl exposure at work he reports. Review of Systems Review of Systems: Yes all other systems are reviewed and are negative [facility] Past Medical History Medical History Depression Diverticulitis GERD (gastroesophageal reflux disease) Family History Family history: reviewed and not pertinent Social History Social History Household Members: Significant Other Housing: House Do you presently have visiting nurse or other home services: No Alcohol intake: current Alcohol intake frequency: 3 or more drinks per day Alcohol type: hard liquor Patient Tobacco Use Status: Former Tobacco user Tobacco use type: Cigarette service: No Current occupational status: employed Meds Allergies Allergy/AdvReac Type Severity Reaction Status Date / Time No Known Allergies Allergy Verified 06/22/20 08:45 Active Medications: Current Medications Acetaminophen (Acetaminophen 325 Mg Tablet) 650 mg PO Q6H PRN PRN Reason: Pain, Mild (Pain Scale 1-3) Last Admin: 07/24/21 17:24 Dose: 650 mg Documented by: Albuterol/Ipratropium (Albuterol/Iprat 2.5/0.5mg 3 Ml Ampul.Neb) 3 ml INHALE Q4H PRN PRN Reason: Shortness of Breath/Wheezing Bupropion HCl (Bupropion Hcl Xl 300 Mg Tab.Er.24h) 300 mg PO DAILY [facility] Last Admin: 07/24/21 09:37 Dose: 300 mg Documented by: Dextrose (Dextrose 50 % 25 Gm/50 Ml Vial) 25 gm IVPUSH Q15M PRN; Protocol PRN Reason: per Hypoglycemia Standing Ord. Enoxaparin Sodium (Enoxaparin Sodium 40 Mg/0.4 Ml Syringe) 40 mg SUBCUT Q24H [facility] Last Admin: 07/24/21 23:04 Dose: 40 mg Documented by: Glucose (Glucose Gel 15 Gm Gel..Gram.) 15 gm PO Q15M PRN; Protocol PRN Reason: per Hypoglycemia Standing Ord. Ceftriaxone Sodium 1 gm/ (Sodium Chloride) 50 mls @ 100 mls/hr IV Q24H [facility] Last Infusion: 07/24/21 21:02 Dose: Infused Documented by: Metronidazole (Flagyl) 500 mg in 100 mls @ 100 mls/hr IV Q8H [facility] Last Admin: 07/24/21 22:59 Dose: 100 mls/hr Documented by: Azithromycin 500 mg/ Sodium (Chloride) 250 mls @ 125 mls/hr IV Q24H [facility] Last Infusion: 07/24/21 23:06 Dose: Infused Documented by: Insulin Human Lispro (Insulin Lispro 100 Unit/Ml 3 Ml Vial) 0 unit SUBCUT QIDACHS [facility]; Protocol Last Admin: 07/24/21 21:00 Dose: Not Given Documented by: Melatonin (Melatonin 3 Mg Tablet) 6 mg PO BEDTIME PRN PRN Reason: Insomnia Methylprednisolone Sodium Succinate (Methylprednisolone Sod Succ 40 Mg/Ml Vial) 40 mg IVPUSH Q8H [facility] Last Admin: 07/24/21 20:53 Dose: 40 mg Documented by: Morphine Sulfate (Morphine Sulfate 4 Mg/Ml Cartridge) 1 mg IVPUSH Q4H PRN; Protocol PRN Reason: Pain, SOB Last Admin: 07/24/21 09:49 Dose: 1 mg Documented by: Omeprazole (Omeprazole 20 Mg Capsule.) 20 mg PO DAILY@0630 [facility] Last Admin: 07/24/21 06:11 Dose: 20 mg Documented by: Senna (Sennosides 8.6 Mg Tablet) 17.2 mg PO BEDTIME PRN PRN Reason: Constipation Sodium Chloride (0.9 % Sodium Chloride Flush 3 Ml Syringe) 3 ml IVFLUSH QSHIFT [facility] Last Admin: 07/24/21 23:06 Dose: 3 ml Documented by: Home Medications Medication Instructions Recorded Confirmed Last Taken Type bupropion HCl 300 mg 24 hr tablet, 300 mg PO DAILY 07/23/21 07/23/21 Unknown History extended release metformin 750 mg tablet,extended 1,500 mg PO DAILY 07/23/21 07/23/21 Unknown History release 24 hr omeprazole 20 mg capsule,delayed 20 mg PO DAILY 07/23/21 07/23/21 Unknown History release Physical Exam Vital Signs: Vital Signs: Last Vital Signs Temp 98.2 F 07/24/21 20:00 Pulse 112 H 07/24/21 20:00 Resp 22 H 07/24/21 20:00 BP 111/56 L 07/24/21 20:00 Pulse Ox 98 07/24/21 20:00 BMI result Body Mass Index 49.6 Const: General: cooperative HENMT: Mouth: Normal oral and palatal mucosa present Eyes: General: appearance normal, both eyes and all related structures Resp: Effort & Inspection: normal respiratory effort Cardio: Rate: regular rate Rhythm: regular rhythm GI: Inspection: Yes normal to inspection : General: Yes no CVA tenderness Back/Spine/Pelvis: Back: no CVA tenderness Skin: General skin exam: no rashes or lesions noted Extrem: General: Yes normal to inspection Results Labs CBC & Chem 7: 07/24/21 06:28 07/24/21 06:28 Labs: Short CBC 07/24/21 Range/Units 06:28 WBC 23.6 H (4.8-10.8) X10*3/uL Hgb 11.3 L (14.0-18.0) g/dl Hct 36.5 L (42.0-52.0) % Plt Count 276 (160-400) X10*3/uL BMP 07/24/21 06:28 Sodium 138 Potassium 5.1 Chloride 106 Carbon Dioxide 23 BUN 17 H Creatinine 0.89 Calcium 8.8 Microbiology Microbiology Results: Microbiology 07/23/21 19:31 Blood - Venous Blood Culture - Preliminary No growth after 24 hours. 07/23/21 18:33 Blood - Venous Blood Culture - Preliminary No growth after 24 hours. Assessment and Plan (1) Acute respiratory failure with hypoxia: Status: Acute (2) Acute lung injury: Status: Acute This may be most likely chemical pneumonitis It is less likely aspiration Possible strep pneumonia or atypical as well Continue Ceftriaxone and atypical coverage May stop Flagyl Tomorrow po Augmentin and Doxycycline for a week Would check urine legionella antigen. Steroids consideration Check fentanyl level
--- NOTE | 2021-07-24 23:16 | P.CNID_ITS ---
History of Present Illness Data of Consult Primary Care Provider: Barney House MD [facility] Past Medical History Medical History Depression Diverticulitis GERD (gastroesophageal reflux disease) Family History Family history: reviewed and not pertinent Social History Social History Household Members: Significant Other Housing: House Do you presently have visiting nurse or other home services: No Alcohol intake: current Alcohol intake frequency: 3 or more drinks per day Alcohol type: hard liquor Patient Tobacco Use Status: Former Tobacco user Tobacco use type: Cigarette service: No Current occupational status: employed Meds Allergies Allergy/AdvReac Type Severity Reaction Status Date / Time No Known Allergies Allergy Verified 06/22/20 08:45 Active Medications: Current Medications Acetaminophen (Acetaminophen 325 Mg Tablet) 650 mg PO Q6H PRN PRN Reason: Pain, Mild (Pain Scale 1-3) Last Admin: 07/24/21 17:24 Dose: 650 mg Documented by: Albuterol/Ipratropium (Albuterol/Iprat 2.5/0.5mg 3 Ml Ampul.Neb) 3 ml INHALE Q4H PRN PRN Reason: Shortness of Breath/Wheezing Bupropion HCl (Bupropion Hcl Xl 300 Mg Tab.Er.24h) 300 mg PO DAILY [facility] Last Admin: 07/24/21 09:37 Dose: 300 mg Documented by: Dextrose (Dextrose 50 % 25 Gm/50 Ml Vial) 25 gm IVPUSH Q15M PRN; Protocol PRN Reason: per Hypoglycemia Standing Ord. Enoxaparin Sodium (Enoxaparin Sodium 40 Mg/0.4 Ml Syringe) 40 mg SUBCUT Q24H [facility] Last Admin: 07/24/21 23:04 Dose: 40 mg Documented by: Glucose (Glucose Gel 15 Gm Gel..Gram.) 15 gm PO Q15M PRN; Protocol PRN Reason: per Hypoglycemia Standing Ord. Ceftriaxone Sodium 1 gm/ (Sodium Chloride) 50 mls @ 100 mls/hr IV Q24H [facility] Last Infusion: 07/24/21 21:02 Dose: Infused Documented by: Azithromycin 500 mg/ Sodium (Chloride) 250 mls @ 125 mls/hr IV Q24H [facility] Last Infusion: 07/24/21 23:06 Dose: Infused Documented by: Insulin Human Lispro (Insulin Lispro 100 Unit/Ml 3 Ml Vial) 0 unit SUBCUT QIDACHS [facility]; Protocol Last Admin: 07/24/21 21:00 Dose: Not Given Documented by: Melatonin (Melatonin 3 Mg Tablet) 6 mg PO BEDTIME PRN PRN Reason: Insomnia Methylprednisolone Sodium Succinate (Methylprednisolone Sod Succ 40 Mg/Ml Vial) 40 mg IVPUSH Q8H [facility] Last Admin: 07/24/21 20:53 Dose: 40 mg Documented by: Morphine Sulfate (Morphine Sulfate 4 Mg/Ml Cartridge) 1 mg IVPUSH Q4H PRN; Protocol PRN Reason: Pain, SOB Last Admin: 07/24/21 09:49 Dose: 1 mg Documented by: Omeprazole (Omeprazole 20 Mg Capsule.) 20 mg PO DAILY@0630 [facility] Last Admin: 07/24/21 06:11 Dose: 20 mg Documented by: Senna (Sennosides 8.6 Mg Tablet) 17.2 mg PO BEDTIME PRN PRN Reason: Constipation Sodium Chloride (0.9 % Sodium Chloride Flush 3 Ml [facility]) [facility] Admin: 07/24/21 23:06 Dose: 3 ml Documented by: Home Medications Medication Instructions Recorded Confirmed Last Taken Type bupropion HCl 300 mg 24 hr tablet, 300 mg PO DAILY 07/23/21 07/23/21 Unknown History extended release metformin 750 mg tablet,extended 1,500 mg PO DAILY 07/23/21 07/23/21 Unknown History release 24 hr omeprazole 20 mg capsule,delayed 20 mg PO DAILY 07/23/21 07/23/21 Unknown History release Physical Exam Vital Signs: Vital Signs: Last Vital Signs Temp 98.2 F 07/24/21 20:00 Pulse 112 H 07/24/21 20:00 Resp 22 H 07/24/21 20:00 BP 111/56 L 07/24/21 20:00 Pulse Ox 98 07/24/21 20:00 BMI result Body Mass Index 49.6 Results Labs CBC & Chem 7: 07/24/21 06:28 07/24/21 06:28 Labs: Short CBC 07/24/21 Range/Units 06:28 WBC 23.6 H (4.8-10.8) X10*3/uL Hgb 11.3 L (14.0-18.0) g/dl Hct 36.5 L (42.0-52.0) % Plt Count 276 (160-400) X10*3/uL BMP 07/24/21 06:28 Sodium 138 Potassium 5.1 Chloride 106 Carbon Dioxide 23 BUN 17 H Creatinine 0.89 Calcium 8.8 Microbiology Microbiology Results: Microbiology 07/23/21 19:31 Blood - Venous Blood Culture - Preliminary No growth after 24 hours. 07/23/21 18:33 Blood - Venous Blood Culture - Preliminary No growth after 24 hours.
[2021-07-25] VITALS (9 sets, daily range): BP systolic 114–134; BP diastolic 54–71; PULSE 101–110; RESP 18–20; TEMP 36.4–36.9; O2SAT 91–99; BMI 50.2
[2021-07-25] MEDS: Morphine Sulfate 4 MG/ML CARTRIDGE 1 MG IVPUSH ×2 (02:19→15:36)
[2021-07-25] MEDS: methylPREDNISolone Sod Succ 40 MG/ML VIAL IVPUSH ×3 (05:25→20:59)
[2021-07-25] MEDS: Omeprazole 20 MG CAPSULE.DR PO (05:25)
[2021-07-25 06:23] LABS: MANUAL DIFF FLAG NO
[2021-07-25 06:41] LABS: Basophils Percent Auto 0.1 % (0-2); Hematocrit 35.3 % (42.0-52.0); Hemoglobin 10.6 g/dl (14.0-18.0); Imm Gran Abs Auto 0.14 X10*3/uL (0.00-0.03); Imm Gran Pct Auto 0.7 % (0.0-0.4); Lymphocytes Absolute Auto 1.4 X10*3/uL (1.2-4.9); Lymphocytes Percent Auto 7.1 % (20-40); Mean Corpuscular Hemoglobin 25.2 pg (27.0-33.0); Mean Platelet Volume 9.2 fL (9.4-12.4); Monocytes Absolute Auto 0.9 X10*3/uL (0.1-1.2); Monocytes Percent Auto 4.9 % (2-11); Neutrophils Absolute Auto 16.5 x10*3/uL (2.0-8.3); Neutrophils Percent Auto 87.2 % (45-73); Platelet Count 292 X10*3/uL (160-400); Red Cell Distribution Width 15.5 % (11.0-16.0); White Blood Count 18.9 X10*3/uL (4.8-10.8)
[2021-07-25 06:51] LABS: Alanine Aminotransferase 64 U/L (0-40); Albumin Level 4.1 g/dL (3.5-5.0); Alkaline Phosphatase 78 U/L (39-117); Anion Gap 13 (12-20); Aspartate Amino Transferase 31 U/L (5-37); Bilirubin Total 0.2 mg/dL (0.0-1.0); Blood Urea Nitrogen 19 mg/dL (9-16); Calcium 9.1 mg/dL (8.4-10.2); Carbon Dioxide 27 mmol/L (22-29); Chloride 104 mmol/L (96-108); Creatinine Clr Calc Pharmacy 226.3; Estimated Glomerular Filt Rate > 60; Glucose Fasting 158 mg/dL (60-99); Potassium 4.4 mmol/L (3.3-5.1); Sodium 140 mmol/L (135-145); Total Protein 7.2 g/dL (6.5-8.0)
[2021-07-25 08:13] LABS: Glucose, Whole Blood 149 mg/dL (60-115)
[2021-07-25] MEDS: buPROPion HCl XL 300 MG TAB.ER.24H PO (08:22)
[2021-07-25] MEDS: 0.9 % Sodium Chloride Flush 3 ML SYRINGE IVFLUSH ×3 (08:23→23:35)
[2021-07-25] MEDS: Acetaminophen 325 MG TABLET 650 MG PO (08:37)
[2021-07-25] MEDS: Albuterol/Iprat 2.5/0.5MG 3 ML AMPUL.NEB INHALE ×3 (09:52→23:37)
--- NOTE | 2021-07-25 10:47 | P.CNNE_ITS ---
History of Present Illness Data of Consult Service Date: 07/25/21 Primary Care Provider: Barney House MD [facility] Reason for consult: Numbness 35 years old man with morbid obesity came to emergency room with confusion and numbness. Apparently he was in usual state of health when he was noted to be somewhat confused by his family and was brought here. He also complained of a numb feeling right side of his face and left foreleg. He said that there was some facial droop and difficulty speaking but most of those symptoms now resolved. He continued to have some numbness on lower right side of the face and left foreleg. There was no recent trauma. Review of Systems Review of Systems: He complained of chest discomfort on admission but there was no obvious cold or flu-like illness recently put PMFSH Past Medical History Medical History Depression Diverticulitis GERD (gastroesophageal reflux disease) Family History Family history: reviewed and not pertinent Social History Social History Household Members: Significant Other Housing: House Do you presently have visiting nurse or other home services: No Alcohol intake: current Alcohol intake frequency: 3 or more drinks per day Alcohol type: hard liquor Patient Tobacco Use Status: Former Tobacco user Tobacco use type: Cigarette service: No Current occupational status: employed Meds Allergies Allergy/AdvReac Type Severity Reaction Status Date / Time No Known Allergies Allergy Verified 06/22/20 08:45 Active Medications: Current Medications Acetaminophen (Acetaminophen 325 Mg Tablet) 650 mg PO Q6H PRN PRN Reason: Pain, Mild (Pain Scale 1-3) Last Admin: 07/25/21 08:37 Dose: 650 mg Documented by: Albuterol/Ipratropium (Albuterol/Iprat 2.5/0.5mg 3 Ml Ampul.Neb) 3 ml INHALE Q4H PRN PRN Reason: Shortness of Breath/Wheezing Last Admin: 07/25/21 09:52 Dose: 3 ml Documented by: Bupropion HCl (Bupropion Hcl Xl 300 Mg Tab.Er.24h) 300 mg PO DAILY [facility] Last Admin: 07/25/21 08:22 Dose: 300 mg Documented by: Dextrose (Dextrose 50 % 25 Gm/50 Ml Vial) 25 gm IVPUSH Q15M PRN; Protocol PRN Reason: per Hypoglycemia Standing Ord. Enoxaparin Sodium (Enoxaparin Sodium 40 Mg/0.4 Ml Syringe) 40 mg SUBCUT Q24H [facility] Last Admin: 07/24/21 23:04 Dose: 40 mg Documented by: Glucose (Glucose Gel 15 Gm Gel..Gram.) 15 gm PO Q15M PRN; Protocol PRN Reason: per Hypoglycemia Standing Ord. Ceftriaxone Sodium 1 gm/ (Sodium Chloride) 50 mls @ 100 mls/hr IV Q24H [facility] Last Infusion: 07/24/21 21:02 Dose: Infused Documented by: Azithromycin 500 mg/ Sodium (Chloride) 250 mls @ 125 mls/hr IV Q24H [facility] Last Infusion: 07/24/21 23:06 Dose: Infused Documented by: Insulin Human Lispro (Insulin Lispro 100 Unit/Ml 3 Ml Vial) 0 unit SUBCUT QIDACHS [facility]; Protocol Last Admin: 07/25/21 08:21 Dose: Not Given Documented by: Melatonin (Melatonin 3 Mg Tablet) 6 mg PO BEDTIME PRN PRN Reason: Insomnia Methylprednisolone Sodium Succinate (Methylprednisolone Sod Succ 40 Mg/Ml Vial) 40 mg IVPUSH Q8H [facility] Last Admin: 07/25/21 05:25 Dose: 40 mg Documented by: Morphine Sulfate (Morphine Sulfate 4 Mg/Ml Cartridge) 1 mg IVPUSH Q4H PRN; Protocol PRN Reason: Pain, SOB Last Admin: 07/25/21 02:19 Dose: 1 mg Documented by: Omeprazole (Omeprazole 20 Mg Capsule.) 20 mg PO DAILY@0630 [facility] Last Admin: 07/25/21 05:25 Dose: 20 mg Documented by: Senna (Sennosides 8.6 Mg Tablet) 17.2 mg PO BEDTIME PRN PRN Reason: Constipation Sodium Chloride (0.9 % Sodium Chloride Flush 3 Ml Syringe) 3 ml IVFLUSH QSHIFT [facility] Last Admin: 07/25/21 08:23 Dose: 3 ml Documented by: Home Medications Medication Instructions Recorded Confirmed Last Taken Type bupropion HCl 300 mg 24 hr tablet, 300 mg PO DAILY 07/23/21 07/23/21 Unknown History extended release metformin 750 mg tablet,extended 1,500 mg PO DAILY 07/23/21 07/23/21 Unknown History release 24 hr omeprazole 20 mg capsule,delayed 20 mg PO DAILY 07/23/21 07/23/21 Unknown History release Physical Exam Vital Signs: Vital Signs: Last Vital Signs Temp 98.2 F 07/25/21 08:00 Pulse 101 H 07/25/21 09:58 Resp 18 07/25/21 09:58 BP 121/71 07/25/21 08:00 Pulse Ox 96 07/25/21 08:00 BMI result Body Mass Index 50.2 Neuro: Other: He was alert and awake with normal spontaneity of speech fluency comprehension and affect. Pupils were about 2-3 mm in bright light and 4-6 mm in dim light round and reactive. There was mild right-sided ptosis which he stated was there and since he was 10 years old. Face otherwise was symmetrical. Visual lau are full tongue was midline. Throat was narrow. There was no pronator drift. [id number]-or-[id number] testing was normal. Deep tendon reflexes were absent. Plantars were flat. He was able to get up with a walker an walk around with no significant difficulty. Speech was normal. Affect was normal. Results Labs CBC & Chem 7: 07/25/21 06:02 07/25/21 06:02 Labs: Short CBC 07/25/21 Range/Units 06:02 WBC 18.9 H (4.8-10.8) X10*3/uL Hgb 10.6 L (14.0-18.0) g/dl Hct 35.3 L (42.0-52.0) % Plt Count 292 (160-400) X10*3/uL BMP 07/25/21 06:02 Sodium 140 Potassium 4.4 Chloride 104 Carbon Dioxide 27 BUN 19 H Creatinine 0.79 Calcium 9.1 Liver Function 07/25/21 Range/Units 06:02 Total Bilirubin 0.2 (0.0-1.0) mg/dL AST 31 D (5-37) U/L ALT 64 H (0-40) U/L Alkaline Phosphatase 78 D (39-117) U/L Albumin 4.1 (3.5-5.0) g/dL his noncontrast head CT did not reveal any significant abnormality. CTA of chest revealed lung infiltrates. Left lower extremity venous duplex was normal. Echocardiogram did not reveal any significant abnormality. EKG reveals sinus tachycardia. Microbiology Microbiology Results: Microbiology 07/23/21 19:31 Blood - Venous Blood Culture - Preliminary No growth after 24 hours. 07/23/21 18:33 Blood - Venous Blood Culture - Preliminary No growth after 24 hours. Assessment and Plan (1) Facial numbness: Status: Acute 35 years old man with new onset of right-sided facial and left for leg numbness. Neurological examination, other than right-sided ptosis which was kn own to him for years, did not reveal any significant finding. In this type of patient, to rule out any brainstem lesion explaining crossed deficit, an MRI of brain is required. He was significantly obese that might be a hindrance. In any case I would suggest obtaining a noncontrast MRI of brain to rule out any possibility of stroke or demyelinating disease. Procedures Date of Service Date of Service: 07/25/21
--- NOTE | 2021-07-25 11:06 | HO.PM.IMPN ---
Subjective Subjective Date of Service: 07/25/21 Interval History: feels better this morning; O2 titrated down to 5 L nasal cannula. Notes productive cough Review of Systems shortness of breath improving No chest pain No nausea diarrhea Physical Exam Vital Signs: Vital Signs: Last Vital Signs Temp 98.2 F 07/25/21 08:00 Pulse 101 H 07/25/21 09:58 Resp 18 07/25/21 09:58 BP 121/71 07/25/21 08:00 Pulse Ox 96 07/25/21 08:00 BMI result Body Mass Index 50.2 Const: Other: no acute distress Resp: Other: coarse breath sounds throughout with decreased expiratory wheezes Cardio: Other: no S4; positive S1-S2; GI: Other: obese soft nontender with normoactive bowel sounds Neuro: Other: cranial nerves 2-12 grossly intact as tested. motor is 5/5 all extremities; sensation intact cogni Extrem: Other: no edema Objective Data Active Medications Acetaminophen (Acetaminophen 325 Mg Tablet) 650 mg PO Q6H PRN PRN Reason: Pain, Mild (Pain Scale 1-3) Last Admin: 07/25/21 08:37 Dose: 650 mg Documented by: YIMI Albuterol/Ipratropium (Albuterol/Iprat 2.5/0.5mg 3 Ml Ampul.Neb) 3 ml INHALE Q4H PRN PRN Reason: Shortness of Breath/Wheezing Last Admin: 07/25/21 09:52 Dose: 3 ml Documented by: FRANKIE Amoxicillin/Clavulanate Potassium (Amoxicillin/Potassium Clav 875 Mg Tablet) 875 mg PO Q12H [facility] Bupropion HCl (Bupropion Hcl Xl 300 Mg Tab.Er.24h) 300 mg PO DAILY [facility] Last Admin: 07/25/21 08:22 Dose: 300 mg Documented by: YIMI Dextrose (Dextrose 50 % 25 Gm/50 Ml Vial) 25 gm IVPUSH Q15M PRN; Protocol PRN Reason: per Hypoglycemia Standing Ord. Doxycycline Hyclate (Doxycycline Hyclate 100 Mg Tablet) 100 mg PO Q12H [facility] Enoxaparin Sodium (Enoxaparin Sodium 40 Mg/0.4 Ml Syringe) 40 mg SUBCUT Q24H [facility] Last Admin: 07/24/21 23:04 Dose: 40 mg Documented by: ANGELA Glucose (Glucose Gel 15 Gm Gel..Gram.) 15 gm PO Q15M PRN; Protocol PRN Reason: per Hypoglycemia Standing Ord. Insulin Human Lispro (Insulin Lispro 100 Unit/Ml 3 Ml Vial) 0 unit SUBCUT QIDACHS [facility]; Protocol Last Admin: 07/25/21 08:21 Dose: Not Given Documented by: YIMI Non-Admin Reason: No Insulin Coverage Melatonin (Melatonin 3 Mg Tablet) 6 mg PO BEDTIME PRN PRN Reason: Insomnia Methylprednisolone Sodium Succinate (Methylprednisolone Sod Succ 40 Mg/Ml Vial) 40 mg IVPUSH Q8H [facility] Last Admin: 07/25/21 05:25 Dose: 40 mg Documented by: ANGELA Morphine Sulfate (Morphine Sulfate 4 Mg/Ml Cartridge) 1 mg IVPUSH Q4H PRN; Protocol PRN Reason: Pain, SOB Last Admin: 07/25/21 02:19 Dose: 1 mg Documented by: ANGELA Omeprazole (Omeprazole 20 Mg Capsule.Dr) 20 mg PO DAILY@0630 [facility] Last Admin: 07/25/21 05:25 Dose: 20 mg Documented by: ANGELA Senna (Sennosides 8.6 Mg Tablet) 17.2 mg PO BEDTIME PRN PRN Reason: Constipation Sodium Chloride (0.9 % Sodium Chloride Flush 3 Ml Syringe) 3 ml IVFLUSH QSHIFT [facility] Last Admin: 07/25/21 08:23 Dose: 3 ml Documented by: YIMI Labs CBC & Chem 7: 07/25/21 06:02 07/25/21 06:02 Labs: Laboratory Results - last 24 hr 07/24/21 07/24/21 07/24/21 11:32 17:42 20:14 MCV MCH MCHC RDW Plt Count MPV Immature Gran % (Auto) Neut % (Auto) Lymph % (Auto) [place] % (Auto) Eos % (Auto) Baso % (Auto) Lymph # (Auto) [place] # (Auto) Eos # (Auto) Baso # (Auto) Abs Immat Gran (auto) Absolute Neuts (auto) Absolute Nucleated RBC Nucleated RBC % (auto) Anion Gap Estim Creat Clear Calc Estimated GFR POC Glucose 154 H 139 H 150 H Fasting Glucose Calcium Total Bilirubin AST ALT Alkaline Phosphatase Total Protein Albumin 07/25/21 07/25/21 07/25/21 06:02 06:02 08:09 MCV 84.0 MCH 25.2 L MCHC 30.0 L RDW 15.5 Plt Count 292 MPV 9.2 L Immature Gran % (Auto) 0.7 H Neut % (Auto) 87.2 H Lymph % (Auto) 7.1 L [place] % (Auto) 4.9 Eos % (Auto) 0.0 Baso % (Auto) 0.1 Lymph # (Auto) 1.4 [place] # (Auto) 0.9 Eos # (Auto) 0.0 Baso # (Auto) 0.0 Abs Immat Gran (auto) 0.14 H Absolute Neuts (auto) 16.5 H Absolute Nucleated RBC 0.000 Nucleated RBC % (auto) 0.0 Anion Gap 13 Estim Creat Clear Calc 226.3 Estimated GFR > 60 POC Glucose 149 H Fasting Glucose 158 H Calcium 9.1 Total Bilirubin 0.2 AST 31 D ALT 64 H Alkaline Phosphatase 78 D Total Protein 7.2 Albumin 4.1 Microbiology Microbiology Results: Microbiology 07/23/21 19:31 Blood Culture - Preliminary Blood - Venous No growth after 24 hours. 07/23/21 18:33 Blood Culture - Preliminary Blood - Venous No growth after 24 hours. Assessment and Plan (1) Acute respiratory failure with hypoxia: Status: Acute (2) Pneumonia: Status: Acute Assessment and Plan: 35-year-old male with a past medical history of anxiety, depression, diabetes, GERD, JENNIFER on CPAP presented to the hospital with a chief complaint of confusion/ hypoxia. 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 IV Solumedrol q6hrs; as per ID;switch to Augmentin/Doxy x 7 days Titrate O2 as tolerated 2. Type II DM Will cover with Sliding scale. Adjust a indicated. 3. UTox positive: Will repeat UTox 4. GERD Continue PPI 5. JENNIFER CPaP at HS DVT prophylaxis: Lovenox Code status: Full code Quality Stroke Does the patient have a stroke diagnosis?: No VTE Prior VTE?: No VTE Risk Level:: Medical - moderate - high VTE Device Contraindication: Treatment Not Indicated VTE Drug Contraindication: N/A - Med Ordered
[2021-07-25] MEDS: Amoxicillin/Potassium Clav 875 MG TABLET PO ×2 (12:25→23:35)
[2021-07-25 12:30] LABS: Glucose, Whole Blood 201 mg/dL (60-115)
[2021-07-25] MEDS: Insulin Lispro 100 UNIT/ML 3 ML VIAL SUBCUT ×3 (12:30→21:00)
[2021-07-25 16:25] LABS: Glucose, Whole Blood 159 mg/dL (60-115)
[2021-07-25 20:44] LABS: Glucose, Whole Blood 244 mg/dL (60-115)
[2021-07-25] MEDS: Enoxaparin Sodium 40 MG/0.4 ML SYRINGE SUBCUT (20:59)
[2021-07-25 21:06] LABS: Amphetamine Screen Urine Not Detected (Not Detect); Barbiturates, Urine Not Detected (Not Detect); Benzodiazepines Screen Urine Not Detected (Not Detect); Cannabinoid Screen Urine Not Detected (Not Detect); Cocaine Screen Urine Not Detected (Not Detect); Fentanyl, urine POSITIVE (Not Detect); Opiate Screen Urine POSITIVE (Not Detect); Phencyclidine Screen Urine Not Detected (Not Detect)
[2021-07-25] MEDS: Melatonin 3 MG TABLET 6 MG PO (23:35)
[2021-07-26] VITALS: BP 118/54; PULSE 111; RESP 19; TEMP 36.8; O2SAT 92
[2021-07-26 00:09] VITALS: PULSE 99; RESP 20; O2SAT 92
[2021-07-26 03:35] VITALS: BP 120/71; PULSE 97; RESP 19; TEMP 36.3; O2SAT 96
[2021-07-26] MEDS: Omeprazole 20 MG CAPSULE.DR PO (05:21)
[2021-07-26] MEDS: methylPREDNISolone Sod Succ 40 MG/ML VIAL IVPUSH ×2 (05:21→12:05)
[2021-07-26 05:52] VITALS: BMI 50.1
[2021-07-26 06:23] LABS: MANUAL DIFF FLAG NO
[2021-07-26 06:42] LABS: Basophils Percent Auto 0.1 % (0-2); Hematocrit 35.3 % (42.0-52.0); Hemoglobin 10.7 g/dl (14.0-18.0); Imm Gran Abs Auto 0.16 X10*3/uL (0.00-0.03); Imm Gran Pct Auto 0.9 % (0.0-0.4); Lymphocytes Absolute Auto 1.8 X10*3/uL (1.2-4.9); Mean Corpuscular HGB Conc 30.3 g/dl (31.0-36.0); Mean Corpuscular Hemoglobin 25.5 pg (27.0-33.0); Monocytes Absolute Auto 1.1 X10*3/uL (0.1-1.2); Monocytes Percent Auto 6.1 % (2-11); Neutrophils Absolute Auto 14.7 x10*3/uL (2.0-8.3); Neutrophils Percent Auto 82.9 % (45-73); Platelet Count 282 X10*3/uL (160-400); Red Cell Distribution Width 15.6 % (11.0-16.0); White Blood Count 17.7 X10*3/uL (4.8-10.8)
[2021-07-26 06:50] LABS: Alanine Aminotransferase 60 U/L (0-40); Albumin Level 3.9 g/dL (3.5-5.0); Alkaline Phosphatase 84 U/L (39-117); Anion Gap 11 (12-20); Aspartate Amino Transferase 18 U/L (5-37); Bilirubin Total 0.3 mg/dL (0.0-1.0); Blood Urea Nitrogen 17 mg/dL (9-16); Calcium 9.4 mg/dL (8.4-10.2); Carbon Dioxide 31 mmol/L (22-29); Chloride 104 mmol/L (96-108); Creatinine Clr Calc Pharmacy 231.8; Estimated Glomerular Filt Rate > 60; Glucose Fasting 159 mg/dL (60-99); Potassium 4.4 mmol/L (3.3-5.1); Sodium 142 mmol/L (135-145)
[2021-07-26 06:57] VITALS: BP 143/77; PULSE 96; RESP 20; TEMP 36.6; O2SAT 98
[2021-07-26 07:21] LABS: Glucose, Whole Blood 138 mg/dL (60-115)
[2021-07-26 08:25] LABS: HIV AB/AG Nonreactive (Nonreactive); HIV Num 1 0.04 S/CO (0.00-0.99); ~HepC Num1 0.12 S/CO (0.00-0.79); ~Hepatitis C Antibody Nonreactive (Nonreactive)
[2021-07-26] MEDS: buPROPion HCl XL 300 MG TAB.ER.24H PO (08:42)
[2021-07-26] MEDS: 0.9 % Sodium Chloride Flush 3 ML SYRINGE IVFLUSH (08:42)
[2021-07-26] MEDS: Albuterol/Iprat 2.5/0.5MG 3 ML AMPUL.NEB INHALE ×2 (08:42→13:54)
[2021-07-26 08:44] VITALS: RESP 18; O2SAT 92
[2021-07-26 10:52] VITALS: BP 149/78; PULSE 120; RESP 19; TEMP 36.6; O2SAT 93
[2021-07-26 11:10] LABS: Glucose, Whole Blood 244 mg/dL (60-115)
[2021-07-26 11:59] VITALS: BMI 50.1
--- NOTE | 2021-07-26 12:03 | MHC.CLN ---
RE: CONSULT PT REPORTED WT LOSS 24-33# ON NURSING ADMISSION ASSESSMENT PREVIOUS RECORD REVEALS WT 163KG (06/22/20) PT WITH 9% NONSIGNIFICANT WT GAIN SINCE LAST ADMISSION (1 YEAR AGO) DIET RX: 2000DM-APPROPRIATE PO INTAKE 100% X2 MONITOR PO INTAKE SEE ALSO CLINICAL NUTRITION ASSESSMENT
[2021-07-26] MEDS: Amoxicillin/Potassium Clav 875 MG TABLET PO (12:05)
[2021-07-26] MEDS: Insulin Lispro 100 UNIT/ML 3 ML VIAL SUBCUT (12:06)
--- NOTE | 2021-07-26 12:31 | P.DS_ITS ---
DS: Providers Provider Date of Service: 07/26/21 Date of admission: 07/23/21 21:40 Primary care physician: Barney House MD Consults: 07/23/21 21:42 Consult to Infectious Diseases Routine Consulting Provider: Paty Cota Reason for consultation: PNA; ?COVID; ?Aspiration 07/23/21 21:43 Consult to Cardiology Routine Consulting Provider: Clark Lizarraga Reason for consultation: elevated troponin 07/23/21 21:44 Addiction Medicine Routine Consulting Provider: Ana Sorto Reason for consultation: opiate abuse Consult to Pulmonology Routine Consulting Provider: Portillo Muse Reason for consultation: Hypoxia 07/24/21 00:22 Consult to Neurology Routine Consulting Provider: [facility] Reason for consultation: right facial droop and left leg numbness DS: Diagnosis Discharge Diagnosis (1) Acute respiratory failure with hypoxia: Status: Acute (2) Pneumonia: Status: Acute DS: Summary Hospital Course Hospital Course: 35yoM admitted after witnessed episode of confusion. Minimal recollection of event. No LOC per . 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 State on TroopSwap which he removed immediately. Put back on at [facility] per his account and experienced symptoms. Denies personal use. UTOX positive for Opiates/Fentanyl. ER evaluation demonstrated patchy bilateral infiltrates. Hospital Course: Admitted 2 telemetry; remained in sinus rhythm. Initially troponins bone to the ER but this was thought to be secondary to hypoxia demand. Chest CTA demonstrates diffuse extensive multifocal infiltrates but no evidence of pulmonary emboli. Patient was started on ceftriaxone / azithromycin/Flagyl along with IV pulse dose steroids. He continued to improve over the next 24 hours; was seen by ID felt no need for IV antibiotics and asked that he be switched to Augmentin doxycycline to complete a week of outpatient therapy. Continued to improved on the day of discharge he is ambulatory without desaturation on room air. He will be discharged home to follow up with PCP in and completed course of prednisone doxycycline and Augmentin. of note, patient's initial U tox was positive for fentanyl and opiates. Patient denied recreational use; was seen by behavior but continued to deny use. Repeat U tox done 24 hours later continued to demonstrate fentanyl and opiates; patient adamantly denies. Time Spent with Patient Time attestation: Total time spent providing and/or coordinating discharge services: Discharge coordination time: Greater than 30 minutes Quality: Stroke Does the patient have a stroke diagnosis?: No Physical Exam Vital Signs: Vital Signs: Last Vital Signs Temp 98 F 07/26/21 10:52 Pulse 120 H 07/26/21 10:52 Resp 19 07/26/21 10:52 BP 149/78 H 07/26/21 10:52 Pulse Ox 93 07/26/21 10:52 BMI result Body Mass Index 50.1 Const: Other: no acute distress Resp: Other: Essentially clear bilaterally with scant expiratory wheezes at bases. Good aeration throughout Cardio: Other: no S4; positive S1-S2; GI: Other: obese soft nontender with normoactive bowel sounds Neuro: Other: cranial nerves 2-12 grossly intact as tested. motor is 5/5 all extremities; sensation intact cogni Extrem: Other: no edema DS: Data Data Completed and Pending Labs on day of discharge: Laboratory Results - last 24 hr 07/24/21 07/25/21 07/25/21 23:35 16:20 20:20 WBC RBC Hgb Hct MCV MCH MCHC RDW Plt Count MPV Immature Gran % (Auto) Neut % (Auto) Lymph % (Auto) [place] % (Auto) Eos % (Auto) Baso % (Auto) Lymph # (Auto) [place] # (Auto) Eos # (Auto) Baso # (Auto) Abs Immat Gran (auto) Absolute Neuts (auto) Absolute Nucleated RBC Nucleated RBC % (auto) Sodium Potassium Chloride Carbon Dioxide Anion Gap BUN Creatinine Estim Creat Clear Calc Estimated GFR POC Glucose 159 H Fasting Glucose Calcium Total Bilirubin AST ALT Alkaline Phosphatase Total Protein Albumin Urine Opiates Screen POSITIVE H Urine Fentanyl Screen POSITIVE H Ur Barbiturates Screen Not Detected Ur Phencyclidine Scrn Not Detected Ur Amphetamines Screen Not Detected U Benzodiazepines Scrn Not Detected Urine Cocaine Screen Not Detected U Marijuana (THC) Screen Not Detected Hepatitis C Ab (EIA) Nonreactive HIV 1&2 Ab/P24 Ag 4thGn Nonreactive 07/25/21 07/26/21 07/26/21 20:34 06:11 06:11 WBC 17.7 H RBC 4.20 L Hgb 10.7 L Hct 35.3 L MCV 84.0 MCH 25.5 L MCHC 30.3 L RDW 15.6 Plt Count 282 MPV 9.0 L Immature Gran % (Auto) 0.9 H Neut % (Auto) 82.9 H Lymph % (Auto) 10.0 L [place] % (Auto) 6.1 Eos % (Auto) 0.0 Baso % (Auto) 0.1 Lymph # (Auto) 1.8 [place] # (Auto) 1.1 Eos # (Auto) 0.0 Baso # (Auto) 0.0 Abs Immat Gran (auto) 0.16 H Absolute Neuts (auto) 14.7 H Absolute Nucleated RBC 0.000 Nucleated RBC % (auto) 0.0 Sodium 142 Potassium 4.4 Chloride 104 Carbon Dioxide 31 H Anion Gap 11 L BUN 17 H Creatinine 0.77 Estim Creat Clear Calc 231.8 Estimated GFR > 60 POC Glucose 244 H Fasting Glucose 159 H Calcium 9.4 Total Bilirubin 0.3 AST 18 D ALT 60 H Alkaline Phosphatase 84 Total Protein 7.0 Albumin 3.9 Urine Opiates Screen Urine Fentanyl Screen Ur Barbiturates Screen Ur Phencyclidine Scrn Ur Amphetamines Screen U Benzodiazepines Scrn Urine Cocaine Screen U Marijuana (THC) Screen Hepatitis C Ab (EIA) HIV 1&2 Ab/P24 Ag 4thGn 07/26/21 07/26/21 06:58 10:54 WBC RBC Hgb Hct MCV MCH MCHC RDW Plt Count MPV Immature Gran % (Auto) Neut % (Auto) Lymph % (Auto) [place] % (Auto) Eos % (Auto) Baso % (Auto) Lymph # (Auto) [place] # (Auto) Eos # (Auto) Baso # (Auto) Abs Immat Gran (auto) Absolute Neuts (auto) Absolute Nucleated RBC Nucleated RBC % (auto) Sodium Potassium Chloride Carbon Dioxide Anion Gap BUN Creatinine Estim Creat Clear Calc Estimated GFR POC Glucose 138 H 244 H Fasting Glucose Calcium Total Bilirubin AST ALT Alkaline Phosphatase Total Protein Albumin Urine Opiates Screen Urine Fentanyl Screen Ur Barbiturates Screen Ur Phencyclidine Scrn Ur Amphetamines Screen U Benzodiazepines Scrn Urine Cocaine Screen U Marijuana (THC) Screen Hepatitis C Ab (EIA) HIV 1&2 Ab/P24 Ag 4thGn Preliminary micro results at discharge 07/23/21 19:31 Blood Culture - Preliminary Blood - Venous No growth after 48 hours. 07/23/21 18:33 Blood Culture - Preliminary Blood - Venous No growth after 48 hours. Discharge Plan Discharge Patient Disposition: Home, Self-Care Discharge Diagnosis: chemical pneumonitis Referrals: Barney House MD [Primary Care Provider] - 1 Week Discharge Medications: New doxycycline hyclate 100 mg Tablet 100 mg PO Q12H Qty: 14 RF: 0 amoxicillin-pot clavulanate 875-125 mg Tablet 875 mg PO Q12H Qty: 14 RF: 0 prednisone 10 mg tablet See Rx Instructions .Route .COMPLEX Qty: 45 RF: 0 albuterol sulfate 90 mcg/actuation HFA aerosol inhaler 2 inh inhalation QID PRN (Reason: shortness of breath or wheezing) Qty: 8.5 RF: 2 (DME) Aerochamber Plus Flow-Vu Spacer See Rx Instructions .Route Qty: 1 RF: 0 Continued metformin 750 mg Tablet Extended Release 24 Hr 1,500 mg PO DAILY RF: 0 bupropion HCl 300 mg Tablet Extended Release 24 Hr 300 mg PO DAILY RF: 0 omeprazole 20 mg Capsule,Delayed Release(Dr/Ec) 20 mg PO DAILY RF: 0 Discharge Orders: Discharge Order (Routine); Ordered 07/26/21 Ordered By: Andrew Ann Diet: advance to usual diet Activity on Discharge: As tolerated Stand Alone Forms: Patient Portal Discharge page Care Plan Goals: complete course of prednisone, doxycycline, Augmentin Health Concerns: avoid pulmonary irritants Plan of Treatment: follow-up with PCP for outpatient MR Assessment: improved
[2021-08-01 04:31] LABS: Legionella Ag Urine Not Detected (Not Detected)
== END 2021-07-26 14:31 | disposition home or self-care (01) | DRG 917 ==
LOC: HO.ED 19:11 → HO.EDOVER 21:44 → HO.IMC 07-24 19:10
PROVIDERS: Internal Medicine; Admitting Provider Hospitalist; Emergency Provider Emergency Medicine Emergency Medical Services; PCP Internal Medicine; Visit Provider Hospitalist
DX: T40.411A Poisoning by fentanyl or fentanyl analogs, accidental (unintentional), initial encounter (principal); J96.01 Acute respiratory failure with hypoxia; J68.0 Bronchitis and pneumonitis due to chemicals, gases, fumes and vapors; Z68.43 Body mass index [BMI] 50.0-59.9, adult; Y92.9 Unspecified place or not applicable; K21.9 Gastro-esophageal reflux disease without esophagitis; G47.33 Obstructive sleep apnea (adult) (pediatric); E66.01 Morbid (severe) obesity due to excess calories; E11.9 Type 2 diabetes mellitus without complications; F32.A Depression, unspecified; F17.210 Nicotine dependence, cigarettes, uncomplicated; Z71.6 Tobacco abuse counseling; Z20.822 Contact with and (suspected) exposure to COVID-19; Z79.84 Long term (current) use of oral hypoglycemic drugs; Z79.899 Other long term (current) drug therapy
CPT/HCPCS: 0241U; 36415; 70450; 71275; 80048; 80053; 80307; 82803; 82947; 83605; 83690; 83880; 84484; 85025; 85379; 85610; 85730; 86803; 87040; 87389; 87449; 87635; 93005; 93306; 93971; 94660; 96361; 96365; 96367; 96375; 99285; 99291; 99292; J0456; J0696; J1650; J2270; J2405; J2920; Q9957; Q9967